=== PATIENT | male | born 1985 | race Caucasian/White ===

== ENCOUNTER 2017-05-11 19:54 | Emergency (ER) | payer OTHER ==
[2017-05-11 20:05] VITALS: RESP 18
[2017-05-11] MEDS ORDERED: SODIUM CHLORIDE 0.9% 1,000 ML IV STA (20:21)
--- NOTE | 2017-05-11 20:38 | ED ---
General Adult HPI - General Chief complaint: Recheck/Abnormal Lab/Rx Stated complaint: [facility]/BP 170/110 Time Seen by Provider: 05/11/17 20:06 Source: patient, RN notes reviewed Mode of arrival: ambulatory Limitations: no limitations - History of Present Illness Initial comments: 31-year-old male presents to the emergency department with a chief complaint of hyperglycemia. Patient states that his sugar was around 400 today. Patient states she's never been diagnosed with diabetes but he has had increased urination and thirst. Patient states he went to [facility] breast disease she's been feeling kind of off and dizzy with an elevated blood pressure and they referred him here. Patient states that he has not sought medical care in the while due to not having insurance. Patient states that this time he still having little bit of the dizziness he states sometimes it like the world spinning sometimes like he is about to pass out. Patient states his blood pressure seems to have improved since calming down. Patient states that he was concerns without that he should be seen.Patient denies any recent fever, chills , shortness of breath, chest pain, back pain, abdominal pain, nausea vomiting, numbness or tingling, dysuria or hematuria, constipation or diarrhea, headaches or visual changes, or any other current symptoms. - Related Data Previous Rx's Medication Instructions Recorded amLODIPine BESYLATE [Norvasc] 5 mg PO DAILY #20 tablet 05/11/17 metFORMIN HCL [Glucophage Xr] 500 mg PO DAILY #20 tab 05/11/17 Allergies Allergy/AdvReac Type Severity Reaction Status Date / Time aloe vera Allergy Unknown Verified 05/11/17 20:09 Review of Systems ROS Statement: Those systems with pertinent positive or pertinent negative responses have been documented in the HPI. ROS Other: All systems not noted in ROS Statement are negative. Past Medical History Past Medical History: Hypertension History of Any Multi-Drug Resistant Organisms: None Reported Past Surgical History: No Surgical Hx Reported Past Psychological History: No Psychological Hx Reported Smoking Status: Never smoker Past Alcohol Use History: None Reported Past Drug Use History: None Reported General Exam - General Exam Comments Initial Comments: General: The patient is awake and alert, in no distress, and does not appear acutely ill. Eye: Pupils are equal, round and reactive to light, extra-ocular movements are intact; there is normal conjunctiva bilaterally. No signs of icterus. Ears, nose, mouth and throat: There are moist mucous membranes. Neck: The neck is supple, there is no tenderness. Cardiovascular: There is a regular rate and rhythm. No murmur, rub or gallop is appreciated. Respiratory: Lungs are clear to auscultation, respirations are non-labored, breath sounds are equal. No wheezes, stridor, rales, or rhonchi. Gastrointestinal: Soft, non-distended, non-tender abdomen without masses or organomegaly noted. There is no rebound or guarding present. No CVA tenderness. Bowel sounds are unremarkable. Back: There is no tenderness to palpation in the midline. There is no obvious deformity. No rashes noted. Musculoskeletal: Normal ROM, no tenderness, There is no pedal edema. There is no calf tenderness or swelling. Sensation intact. Pulses equal bilaterally 2+. Neurological: CN II-XII intact, There are no obvious motor or sensory deficits. Coordination appears grossly intact. Speech is normal. Skin: Skin is warm and dry and no rashes or lesions are noted. Psychiatric: Cooperative, appropriate mood & affect, normal judgment. Limitations: no limitations Course Vital Signs 05/11/17 05/11/17 20:00 21:12 Temperature 98.7 F Pulse Rate 83 85 Respiratory 18 18 Rate Blood Pressure 182/97 153/84 O2 Sat by Pulse 99 97 Oximetry EKG Findings - EKG Comments: EKG Findings:: normal sinus rhythm 84 bpm, normal axis, no atopy, no S-T depressions or elevations, Medical Decision Making - Medical Decision Making 31-year-old male presents emergency Department chief complaint hypertension and hyperglycemia. At this time patient's lab work has been reviewed. There is suspicion for possible new-onset diabetes. Hypertension. We will treat accordingly. We did discuss close up with her doctor. We discussed long-term. Discussed return parameters outpatient family's questions. He stated the [facility] management plan. They will be discharged home. - Lab Data Result diagrams: 05/11/17 20:37 05/11/17 20:37 Lab Results 05/11/17 05/11/17 05/11/17 Range/Units 20:36 20:37 20:37 WBC 10.6 (3.8-10.6) k/uL RBC 5.40 (4.30-5.90) m/uL Hgb 16.9 (13.0-17.5) gm/dL Hct 46.8 (39.0-53.0) % MCV 86.7 (80.0-100.0) fL MCH 31.3 (25.0-35.0) pg MCHC 36.1 (31.0-37.0) g/dL RDW 12.6 (11.5-15.5) % Plt Count 201 (150-450) k/uL Neutrophils % 65 % Lymphocytes % 28 % Monocytes % 3 % Eosinophils % 2 % Basophils % 1 % Neutrophils # 6.9 (1.3-7.7) k/uL Lymphocytes # 2.9 (1.0-4.8) k/uL Monocytes # 0.4 (0-1.0) k/uL Eosinophils # 0.2 (0-0.7) k/uL Basophils # 0.1 (0-0.2) k/uL PT (9.0-12.0) sec INR (<1.2) APTT (22.0-30.0) sec Sodium 137 (137-145) mmol/L Potassium 4.0 (3.5-5.1) mmol/L Chloride 102 (98-107) mmol/L Carbon Dioxide 24 (22-30) mmol/L Anion Gap 11 mmol/L BUN 12 (9-20) mg/dL Creatinine 0.60 L (0.66-1.25) mg/dL Est GFR (MDRD) Af Amer >60 (>60 ml/min/1.73 sqM) Est GFR (MDRD) Non-Af >60 (>60 ml/min/1.73 sqM) Glucose 351 H (74-99) mg/dL POC Glucose (mg/dL) 330 H (75-99) mg/dL POC Glu [employer] Supervisor ID Jessica Huntley Calcium 9.4 (8.4-10.2) mg/dL Phosphorus 4.1 (2.5-4.5) mg/dL Magnesium 1.6 (1.6-2.3) mg/dL Total Bilirubin 1.2 (0.2-1.3) mg/dL AST 50 (17-59) U/L ALT 83 H (21-72) U/L Alkaline Phosphatase 118 (38-126) U/L Total Protein 7.6 (6.3-8.2) g/dL Albumin 4.2 (3.5-5.0) g/dL Amylase 45 (30-110) U/L Lipase 60 (23-300) U/L Urine Color Urine Appearance (Clear) Urine pH (5.0-8.0) Ur Specific [place] (1.001-1.035) Urine Protein (Negative) Urine Glucose (UA) (Negative) Urine Ketones (Negative) Urine Blood (Negative) Urine Nitrite (Negative) Urine Bilirubin (Negative) Urine Urobilinogen (<2.0) mg/dL Ur Leukocyte Esterase (Negative) Acetone, Qual Negative (Negative) 05/11/17 05/11/17 Range/Units 20:37 21:15 WBC (3.8-10.6) k/uL RBC (4.30-5.90) m/uL Hgb (13.0-17.5) gm/dL Hct (39.0-53.0) % MCV (80.0-100.0) fL MCH (25.0-35.0) pg MCHC (31.0-37.0) g/dL RDW (11.5-15.5) % Plt Count (150-450) k/uL Neutrophils % % Lymphocytes % % Monocytes % % Eosinophils % % Basophils % % Neutrophils # (1.3-7.7) k/uL Lymphocytes # (1.0-4.8) k/uL Monocytes # (0-1.0) k/uL Eosinophils # (0-0.7) k/uL Basophils # (0-0.2) k/uL PT 11.4 (9.0-12.0) sec INR 1.1 (<1.2) APTT 23.9 (22.0-30.0) sec Sodium (137-145) mmol/L Potassium (3.5-5.1) mmol/L Chloride (98-107) mmol/L Carbon Dioxide (22-30) mmol/L Anion Gap mmol/L BUN (9-20) mg/dL Creatinine (0.66-1.25) mg/dL Est GFR (MDRD) Af Amer (>60 ml/min/1.73 sqM) Est GFR (MDRD) Non-Af (>60 ml/min/1.73 sqM) Glucose (74-99) mg/dL POC Glucose (mg/dL) (75-99) mg/dL POC Glu [employer] Supervisor ID Calcium (8.4-10.2) mg/dL Phosphorus (2.5-4.5) mg/dL Magnesium (1.6-2.3) mg/dL Total Bilirubin (0.2-1.3) mg/dL AST (17-59) U/L ALT (21-72) U/L Alkaline Phosphatase (38-126) U/L Total Protein (6.3-8.2) g/dL Albumin (3.5-5.0) g/dL Amylase (30-110) U/L Lipase (23-300) U/L Urine Color Yellow Urine Appearance Clear (Clear) Urine pH 5.5 (5.0-8.0) Ur Specific [place] 1.026 (1.001-1.035) Urine Protein Negative (Negative) Urine Glucose (UA) 4+ H (Negative) Urine Ketones Negative (Negative) Urine Blood Negative (Negative) Urine Nitrite Negative (Negative) Urine Bilirubin Negative (Negative) Urine Urobilinogen <2.0 (<2.0) mg/dL Ur Leukocyte Esterase Negative (Negative) Acetone, Qual (Negative) - Radiology Data Radiology results: report reviewed, image reviewed Disposition Clinical Impression: Hyperglycemia, Hypertension Disposition: HOME SELF-CARE Condition: Stable Instructions: Diabetic Hyperglycemia (ED), Hypertension (ED) Additional Instructions: Please use medication as discussed. Please follow up with family doctor if symptoms have not improved over the next two days. Please return to the emergency room if your symptoms increase or worsen or for any other concerns. Prescriptions: amLODIPine BESYLATE [Norvasc] 5 mg PO DAILY #20 tablet metFORMIN HCL [Glucophage Xr] 500 mg PO DAILY #20 tab Referrals: Mila Coronado MD [STAFF PHYSICIAN] - 1-2 days Time of Disposition: 21:54
[2017-05-11 20:55] LABS: Glucose,Whole Blood 330 mg/dL (75-99)
[2017-05-11 20:58] LABS: Basophils # (A) 0.1 k/uL (0-0.2); Basophils % (A) 1 %; CH 31.9; CHCM 36.9; Eosinophils # (A) 0.2 k/uL (0-0.7); Eosinophils % (A) 2 %; HCT 46.8 % (39.0-53.0); HDW 2.82; HGB 16.9 gm/dL (13.0-17.5); Luc # (Auto) 0.16; Luc % (Auto) 2; Lymphocytes # (A) 2.9 k/uL (1.0-4.8); Lymphocytes % (A) 28 %; MCH 31.3 pg (25.0-35.0); MCHC 36.1 g/dL (31.0-37.0); MCV 86.7 fL (80.0-100.0); Mean Platelet Volume 7.7; Monocytes # (A) 0.4 k/uL (0-1.0); Monocytes % (A) 3 %; Neutrophils # (A) 6.9 k/uL (1.3-7.7); Neutrophils % (A) 65 %; RDW 12.6 % (11.5-15.5); WBC 10.6 k/uL (3.8-10.6); WBC (Perox) 10.25
--- NOTE | 2017-05-11 20:58 | XR ---
EXAMINATION TYPE: XR chest 2V DATE OF EXAM: 05/11/2017 COMPARISON: NONE INDICATION: Cough TECHNIQUE: Frontal and lateral views of the chest are obtained. FINDINGS: The heart size is normal. The pulmonary vasculature is normal. The lungs are clear. IMPRESSION: 1. No acute pulmonary process.
[2017-05-11 21:17] LABS: ALT 83 U/L (21-72); AST 50 U/L (17-59); Alkaline Phosphatase 118 U/L (38-126); Amylase 45 U/L (30-110); Anion Gap 11 mmol/L; Blood Urea Nitrogen 12 mg/dL (9-20); Calcium 9.4 mg/dL (8.4-10.2); Carbon Dioxide 24 mmol/L (22-30); Chloride 102 mmol/L (98-107); Glucose 351 mg/dL (74-99); Magnesium 1.6 mg/dL (1.6-2.3); Non-African American GFR(MDRD) >60 (>60 ml/min/1.73 sqM); Phosphorous 4.1 mg/dL (2.5-4.5); Sodium 137 mmol/L (137-145); Total Bilirubin 1.2 mg/dL (0.2-1.3); Total Protein 7.6 g/dL (6.3-8.2)
[2017-05-11 21:21] LABS: INR 1.1 (<1.2); Partial Thromboplastin Time 23.9 sec (22.0-30.0); Prothrombin Time 11.4 sec (9.0-12.0)
[2017-05-11 21:26] LABS: Appearance,Urine Clear (Clear); Bilirubin,Urine Negative (Negative); Glucose,Urine (UA) 4+ (Negative); Ketones,Urine Negative (Negative); Leukocyte Esterase,Urine Negative (Negative); Nitrite,Urine Negative (Negative); PH, Urine 5.5 (5.0-8.0); Protein,Urine Negative (Negative); Specific Gravity,Urine 1.026 (1.001-1.035); UA Billing (MACRO vs. MICRO) CHEM; Urobilinogen,Urine <2.0 mg/dL (<2.0)
[2017-05-11 22:08] VITALS: BP 148/70
[2017-05-11 22:12] VITALS: PULSE 91; TEMP 97.5
== END 2017-05-11 22:11 | disposition home or self-care (01) ==
LOC: EC 19:54
DX: R73.9 Hyperglycemia, unspecified (principal); I10 Essential (primary) hypertension; R42 Dizziness and giddiness; Z91.048 Other nonmedicinal substance allergy status
CPT/HCPCS: 36415; 71020; 80053; 81003; 82009; 82150; 83036; 83690; 83735; 84100; 85025; 85610; 85730; 93005; 96360; 99285

== ENCOUNTER 2017-09-16 12:54 | Emergency (ER) | payer OTHER ==
[2017-09-16] MEDS ORDERED: SODIUM CHLORIDE 0.9% 1,000 ML IV STA (16:43)
--- NOTE | 2017-09-16 16:50 | ED ---
General Adult HPI - General Chief complaint: Syncope Stated complaint: syncope/facial numbness/nausea/headache Time Seen by Provider: 09/16/17 13:00 Source: patient, RN notes reviewed Mode of arrival: ambulatory Limitations: no limitations - History of Present Illness Initial comments: This is a 31-year-old male who presents emergency Department with a syncopal episode. Patient states he got up and went to the bathroom was walking back to the bedroom and He knows his wake him up on the floor. states that was 2 hours later but she wasn't home for this to our psychiatrist been sick on the floor but effective matter as the patient does not remember waking up on the floor of her. states when he did wake up he acted normal and was able to get up on his own he did complain of some tingling on both sidesbut that quickly resolved. Patient also is complaining of a headache since that time he still states the headache is there. Patient does not have any scalp contusions or hematomas that he knows appear patient denies any neck pain. Patient denies any numbness weakness per patient denies any palpitations chest pain difficult breathing shortness breath per patient denies any other previous episodes of syncope. Patient denies abdominal pain patient denies nausea vomiting diarrhea. Patient denies any back pain or extremity pain. Patient states he might be a diabetic but he never followed up. Patient states he does have hypertension. - Related Data Previous Rx's Medication Instructions Recorded amLODIPine BESYLATE [Norvasc] 5 mg PO DAILY #20 tablet 05/11/17 metFORMIN HCL [Glucophage Xr] 500 mg PO DAILY #20 tab 05/11/17 Allergies Allergy/AdvReac Type Severity Reaction Status Date / Time aloe vera Allergy Unknown Verified 09/16/17 17:40 Review of Systems ROS Statement: Those systems with pertinent positive or pertinent negative responses have been documented in the HPI. ROS Other: All systems not noted in ROS Statement are negative. Past Medical History Past Medical History: Hypertension History of Any Multi-Drug Resistant Organisms: None Reported Past Surgical History: No Surgical Hx Reported Past Psychological History: No Psychological Hx Reported Smoking Status: Never smoker Past Alcohol Use History: None Reported Past Drug Use History: None Reported General Exam - General Exam Comments Initial Comments: GENERAL: Patient is well-developed and well-nourished. Patient is nontoxic and well- hydrated and is in mild distress. I did not note any hematoma or tenderness on the scalp. ENT: Neck is soft and supple. No significant lymphadenopathy is noted. Oropharynx is clear. Moist mucous membranes. Neck has full range of motion without eliciting any pain. EYES: The sclera were anicteric and conjunctiva were pink and moist. Extraocular movements were intact and pupils were equal round and reactive to light. Eyelids were unremarkable. PULMONARY: Unlabored respirations. Good breath sounds bilaterally. No audible rales rhonchi or wheezing was noted. CARDIOVASCULAR: There is a regular rate and rhythm without any murmurs gallops or rubs. ABDOMEN: Soft and nontender with normal bowel sounds. SKIN: Skin is clear with no lesions or rashes and otherwise unremarkable. NEUROLOGIC: Patient is alert and oriented x3. Cranial nerves II through XII are grossly intact. Motor and sensory are also intact. Normal speech, volume and content. Symmetrical smile. MUSCULOSKELETAL: Normal extremities with adequate strength and full range of motion. No lower extremity swelling or edema. No calf tenderness. LYMPHATICS: No significant lymphadenopathy is noted PSYCHIATRIC: Normal psychiatric evaluation. Normal interpersonal interactions appears functionally intact in deals appropriately with others. No signs of depression. No signs of anxiety. Limitations: no limitations Course Vital Signs 09/16/17 09/16/17 13:02 18:09 Temperature 97.3 F L Pulse Rate 79 Pulse Rate [ 89 Sitting] Pulse Rate [ 99 Standing] Pulse Rate [ 88 Supine] Respiratory 16 18 Rate Blood Pressure 157/80 Blood Pressure 156/85 [Sitting] Blood Pressure 166/88 [Standing] Blood Pressure 137/80 [Supine] O2 Sat by Pulse 98 Oximetry Medical Decision Making - Medical Decision Making EKG shows normal sinus rhythm at 88 bpm OR interval is 172 QRS is 92 QT interval 380 QTC is 459 per patient's EKG shows no ST segment elevation or depression or T wave abnormalities are noted CT of the head shows no acute abnormality. Chest x-ray shows no acute normalities. I told the patient I wanted him to stay overnight he refused eyes was in the room and agreed that he should stay but he still did not want to stay. - Lab Data Result diagrams: 09/16/17 20:01 09/16/17 20:01 Lab Results 09/16/17 09/16/17 09/16/17 Range/Units 20:01 20:01 20:01 WBC 9.8 (3.8-10.6) k/uL RBC 5.22 (4.30-5.90) m/uL Hgb 15.6 (13.0-17.5) gm/dL Hct 46.0 (39.0-53.0) % MCV 88.1 (80.0-100.0) fL MCH 29.8 (25.0-35.0) pg MCHC 33.9 (31.0-37.0) g/dL RDW 14.3 (11.5-15.5) % Plt Count 181 (150-450) k/uL Neutrophils % 63 % Lymphocytes % 30 % Monocytes % 3 % Eosinophils % 2 % Basophils % 1 % Neutrophils # 6.2 (1.3-7.7) k/uL Lymphocytes # 2.9 (1.0-4.8) k/uL Monocytes # 0.3 (0-1.0) k/uL Eosinophils # 0.2 (0-0.7) k/uL Basophils # 0.1 (0-0.2) k/uL PT 11.2 (9.0-12.0) sec INR 1.2 H (<1.2) APTT 22.8 (22.0-30.0) sec Sodium 140 (137-145) mmol/L Potassium 4.1 (3.5-5.1) mmol/L Chloride 102 (98-107) mmol/L Carbon Dioxide 30 (22-30) mmol/L Anion Gap 8 mmol/L BUN 15 (9-20) mg/dL Creatinine 0.70 (0.66-1.25) mg/dL Est GFR (MDRD) Af Amer >60 (>60 ml/min/1.73 sqM) Est GFR (MDRD) Non-Af >60 (>60 ml/min/1.73 sqM) Glucose 190 H (74-99) mg/dL Calcium 9.1 (8.4-10.2) mg/dL Total Bilirubin 0.8 (0.2-1.3) mg/dL AST 33 (17-59) U/L ALT 73 H (21-72) U/L Alkaline Phosphatase 84 (38-126) U/L Total Creatine Kinase (55-170) U/L CK-MB (CK-2) (0.0-2.4) ng/mL CK-MB (CK-2) Rel Index Troponin I (0.000-0.034) ng/mL Total Protein 7.0 (6.3-8.2) g/dL Albumin 3.7 (3.5-5.0) g/dL Acetone, Qual Negative (Negative) 09/16/17 Range/Units 20:01 WBC (3.8-10.6) k/uL RBC (4.30-5.90) m/uL Hgb (13.0-17.5) gm/dL Hct (39.0-53.0) % MCV (80.0-100.0) fL MCH (25.0-35.0) pg MCHC (31.0-37.0) g/dL RDW (11.5-15.5) % Plt Count (150-450) k/uL Neutrophils % % Lymphocytes % % Monocytes % % Eosinophils % % Basophils % % Neutrophils # (1.3-7.7) k/uL Lymphocytes # (1.0-4.8) k/uL Monocytes # (0-1.0) k/uL Eosinophils # (0-0.7) k/uL Basophils # (0-0.2) k/uL PT (9.0-12.0) sec INR (<1.2) APTT (22.0-30.0) sec Sodium (137-145) mmol/L Potassium (3.5-5.1) mmol/L Chloride (98-107) mmol/L Carbon Dioxide (22-30) mmol/L Anion Gap mmol/L BUN (9-20) mg/dL Creatinine (0.66-1.25) mg/dL Est GFR (MDRD) Af Amer (>60 ml/min/1.73 sqM) Est GFR (MDRD) Non-Af (>60 ml/min/1.73 sqM) Glucose (74-99) mg/dL Calcium (8.4-10.2) mg/dL Total Bilirubin (0.2-1.3) mg/dL AST (17-59) U/L ALT (21-72) U/L Alkaline Phosphatase (38-126) U/L Total Creatine Kinase 64 (55-170) U/L CK-MB (CK-2) 1.1 (0.0-2.4) ng/mL CK-MB (CK-2) Rel Index 1.7 Troponin I <0.012 (0.000-0.034) ng/mL Total Protein (6.3-8.2) g/dL Albumin (3.5-5.0) g/dL Acetone, Qual (Negative) Disposition Clinical Impression: Syncope and collapse Disposition: Left Against Medical Advice Instructions: Syncope (ED) Referrals: None,Stated [Primary Care Provider] - 1-2 days Time of Disposition: 21:01
--- NOTE | 2017-09-16 18:48 | CT ---
EXAMINATION: CT brain wo con DATE AND TIME: 09/16/2017 6:25 PM ORDERING PROVIDER: Wilfred Hinkle MD CLINICAL INDICATION: syncope facial numbness TECHNIQUE: Standard departmental protocol. COMPARISON: None. DESCRIPTION: The calvarium is intact. There is no intracranial hemorrhage. There is no mass or mass e ffect. There is no definite new attenuation defect. Remainder of the intra-axial and extra-axial comp artment examination is unremarkable. The paranasal sinuses, middle ear cavities, and mastoid sinus ai r cells are clear. The orbits are intact. IMPRESSION: NO ACUTE PROCESS.
--- NOTE | 2017-09-16 18:58 | XR ---
EXAMINATION: XR chest - 3V DATE AND TIME: 09/16/2017 6:25 PM ORDERING PROVIDER: Wilfred Hinkle MD CLINICAL INDICATION: syncope TECHNIQUE: 2 PA and lateral COMPARISON: 05/11/1970 DESCRIPTION: EKG leads present. The lungs are clear. The pleural spaces are negative. The cardiac silhouette is not enlarged. The mediastinal and pleural silhouettes are unremarkable. The skeletal structures are intact without focal findings. The soft tissues are unremarkable. IMPRESSION: NO ACUTE PROCESS.
[2017-09-16 20:11] LABS: Basophils # (A) 0.1 k/uL (0-0.2); Basophils % (A) 1 %; Eosinophils # (A) 0.2 k/uL (0-0.7); Eosinophils % (A) 2 %; HGB 15.6 gm/dL (13.0-17.5); Lymphocytes # (A) 2.9 k/uL (1.0-4.8); Lymphocytes % (A) 30 %; MCH 29.8 pg (25.0-35.0); MCHC 33.9 g/dL (31.0-37.0); MCV 88.1 fL (80.0-100.0); Mean Platelet Volume 7.8; Monocytes # (A) 0.3 k/uL (0-1.0); Monocytes % (A) 3 %; Neutrophils # (A) 6.2 k/uL (1.3-7.7); Neutrophils % (A) 63 %; Platelet Count 181 k/uL (150-450); RBC 5.22 m/uL (4.30-5.90); RDW 14.3 % (11.5-15.5); WBC 9.8 k/uL (3.8-10.6)
[2017-09-16 20:24] LABS: INR 1.2 (<1.2); Partial Thromboplastin Time 22.8 sec (22.0-30.0); Prothrombin Time 11.2 sec (9.0-12.0)
[2017-09-16 20:34] LABS: Creatine Kinase 64 U/L (55-170)
[2017-09-16 20:40] LABS: ALT 73 U/L (21-72); AST 33 U/L (17-59); Albumin 3.7 g/dL (3.5-5.0); Alkaline Phosphatase 84 U/L (38-126); Anion Gap 8 mmol/L; Blood Urea Nitrogen 15 mg/dL (9-20); Calcium 9.1 mg/dL (8.4-10.2); Carbon Dioxide 30 mmol/L (22-30); Chloride 102 mmol/L (98-107); Glucose 190 mg/dL (74-99); Potassium 4.1 mmol/L (3.5-5.1); Sodium 140 mmol/L (137-145); Total Bilirubin 0.8 mg/dL (0.2-1.3)
[2017-09-16 20:47] LABS: Creatine Kinase MB 1.1 ng/mL (0.0-2.4); Troponin I <0.012 ng/mL (0.000-0.034)
[2017-09-16 22:09] VITALS: BP 148/93; PULSE 90; RESP 20
[2017-09-16 22:18] VITALS: TEMP 98.3
== END 2017-09-16 21:55 | disposition left against medical advice (07) ==
LOC: EC 12:54
DX: R55 Syncope and collapse (principal); Z91.048 Other nonmedicinal substance allergy status
CPT/HCPCS: 36415; 70450; 71046; 80053; 82009; 82550; 82553; 84484; 85025; 85610; 85730; 93005; 96360; 99284

== ENCOUNTER 2018-03-23 19:14 | Inpatient (IN) | payer OTHER ==
[2018-03-23 20:17] LABS: Glucose,Whole Blood 293 mg/dL (75-99)
[2018-03-23 21:13] LABS: Basophils # (A) 0.1 k/uL (0-0.2); Basophils % (A) 1 %; Eosinophils # (A) 0.3 k/uL (0-0.7); Eosinophils % (A) 2 %; HCT 49.8 % (39.0-53.0); HGB 17.4 gm/dL (13.0-17.5); Lymphocytes % (A) 31 %; MCH 30.2 pg (25.0-35.0); MCV 86.3 fL (80.0-100.0); Mean Platelet Volume 7.1; Monocytes # (A) 0.4 k/uL (0-1.0); Monocytes % (A) 3 %; Neutrophils % (A) 62 %; Platelet Count 214 k/uL (150-450); RBC 5.76 m/uL (4.30-5.90); RDW 13.5 % (11.5-15.5); WBC 12.9 k/uL (3.8-10.6)
[2018-03-23 21:23] LABS: ALT 74 U/L (21-72); AST 37 U/L (17-59); Albumin 4.3 g/dL (3.5-5.0); Alkaline Phosphatase 95 U/L (38-126); Amylase 52 U/L (30-110); Anion Gap 10 mmol/L; Blood Urea Nitrogen 14 mg/dL (9-20); Calcium 9.4 mg/dL (8.4-10.2); Carbon Dioxide 28 mmol/L (22-30); Chloride 102 mmol/L (98-107); Glucose 314 mg/dL (74-99); Lipase 46 U/L (23-300); Potassium 4.1 mmol/L (3.5-5.1); Sodium 140 mmol/L (137-145); Total Bilirubin 0.9 mg/dL (0.2-1.3); Total Protein 7.6 g/dL (6.3-8.2)
[2018-03-23 22:15] LABS: Glucose,Whole Blood 272 mg/dL (75-99)
[2018-03-23 22:17] VITALS: RESP 16
[2018-03-23] MEDS ORDERED: SODIUM CHLORIDE 0.9% 1,000 ML IV ONE (22:27)
[2018-03-23] MEDS ORDERED: ONDANSETRON 4 MG/2 ML VIAL IVP STA (22:27)
[2018-03-23] MEDS ORDERED: SODIUM CHLORIDE 0.9% 500 ML IV ONE (22:27)
[2018-03-23] MEDS ORDERED: LISINOPRIL 5 MG TAB PO STA (22:30)
--- NOTE | 2018-03-23 22:32 | ED ---
General Adult HPI - General Chief complaint: Abdominal Pain Stated complaint: BLOOD SUGAR IS HIGH Time Seen by Provider: 03/23/18 21:10 Source: patient, RN notes reviewed Mode of arrival: ambulatory Limitations: no limitations - History of Present Illness Initial comments: This is a 32-year-old male who presents emergency Department complaining that he has had nausea vomiting and diarrhea since Friday night. Patient states he went to urgent care and they told him his sugar was 287. Patient states she's not had a high sugar in the past she's never been diagnosed diabetes. Patient states he has been diagnosed with high blood pressure but he doesn't take any medications because he doesn't follow up with a doctor. Patient denies any recent fever chills. Patient denies any difficulty breathing or shortness of breath. Patient denies any chest pain. Patient denies headache patient denies numbness weakness. Patient denies lightheadedness dizziness or near syncopal episode. Patient denies any abdominal pain but he does have nausea still and is still having diarrhea. - Related Data Home Medications Medication Instructions Recorded Confirmed No Known Home Medications 03/23/18 03/23/18 Allergies Allergy/AdvReac Type Severity Reaction Status Date / Time aloe vera Allergy Unknown Verified 03/23/18 22:06 Review of Systems ROS Statement: Those systems with pertinent positive or pertinent negative responses have been documented in the HPI. ROS Other: All systems not noted in ROS Statement are negative. Past Medical History Past Medical History: Hypertension History of Any Multi-Drug Resistant Organisms: None Reported Past Surgical History: No Surgical Hx Reported Past Psychological History: No Psychological Hx Reported Smoking Status: Never smoker Past Alcohol Use History: None Reported Past Drug Use History: None Reported General Exam - General Exam Comments Initial Comments: GENERAL: Patient is well-developed and well-nourished. Patient is nontoxic and well- hydrated and is in mild distress. ENT: Neck is soft and supple. No significant lymphadenopathy is noted. Oropharynx is clear. Dry mucous membranes. Neck has full range of motion without eliciting any pain. EYES: The sclera were anicteric and conjunctiva were pink and moist. Extraocular movements were intact and pupils were equal round and reactive to light. Eyelids were unremarkable. PULMONARY: Unlabored respirations. Good breath sounds bilaterally. No audible rales rhonchi or wheezing was noted. CARDIOVASCULAR: There is a regular rate and rhythm without any murmurs gallops or rubs. ABDOMEN: Soft and nontender with normal bowel sounds. No palpable organomegaly was noted. There is no palpable pulsatile mass. SKIN: Skin is clear with no lesions or rashes and otherwise unremarkable. NEUROLOGIC: Patient is alert and oriented x3. Cranial nerves II through XII are grossly intact. Motor and sensory are also intact. Normal speech, volume and content. Symmetrical smile. MUSCULOSKELETAL: Normal extremities with adequate strength and full range of motion. No lower extremity swelling or edema. No calf tenderness. LYMPHATICS: No significant lymphadenopathy is noted PSYCHIATRIC: Normal psychiatric evaluation. Normal interpersonal interactions appears functionally intact in deals appropriately with others. No signs of depression. Limitations: no limitations Course Vital Signs 03/23/18 03/23/18 20:10 22:12 Temperature 98.2 F Pulse Rate 98 95 Respiratory 18 16 Rate Blood Pressure 161/100 142/98 O2 Sat by Pulse 98 97 Oximetry Medical Decision Making - Medical Decision Making EKG shows normal sinus rhythm at 91 bpm NM interval is 170 QRS is 92 QT interval 376 QTC is 462. Patient's EKG shows no ST segment elevation or depression or T wave abnormalities are noted. Patient has acute vomiting and diarrhea. Patient has what appears to be new onset of diabetes but no one to follow-up with. I spoke with [facility] hospitalist and they agreed to admit the patient and wrote admitting orders. - Lab Data Result diagrams: 03/23/18 21:02 03/23/18 21:02 Lab Results 03/23/18 03/23/18 03/23/18 Range/Units 20:14 21:02 21:02 WBC 12.9 H (3.8-10.6) k/uL RBC 5.76 (4.30-5.90) m/uL Hgb 17.4 (13.0-17.5) gm/dL Hct 49.8 (39.0-53.0) % MCV 86.3 (80.0-100.0) fL MCH 30.2 (25.0-35.0) pg MCHC 35.0 (31.0-37.0) g/dL RDW 13.5 (11.5-15.5) % Plt Count 214 (150-450) k/uL Neutrophils % 62 % Lymphocytes % 31 % Monocytes % 3 % Eosinophils % 2 % Basophils % 1 % Neutrophils # 8.0 H (1.3-7.7) k/uL Lymphocytes # 4.0 (1.0-4.8) k/uL Monocytes # 0.4 (0-1.0) k/uL Eosinophils # 0.3 (0-0.7) k/uL Basophils # 0.1 (0-0.2) k/uL Sodium 140 (137-145) mmol/L Potassium 4.1 (3.5-5.1) mmol/L Chloride 102 (98-107) mmol/L Carbon Dioxide 28 (22-30) mmol/L Anion Gap 10 mmol/L BUN 14 (9-20) mg/dL Creatinine 0.70 (0.66-1.25) mg/dL Est GFR (CKD-EPI)AfAm >90 (>60 ml/min/1.73 sqM) Est GFR (CKD-EPI)NonAf >90 (>60 ml/min/1.73 sqM) Glucose 314 H (74-99) mg/dL POC Glucose (mg/dL) 293 H (75-99) mg/dL POC Glu Seconds Handler ID Benny Roth Calcium 9.4 (8.4-10.2) mg/dL Total Bilirubin 0.9 (0.2-1.3) mg/dL AST 37 (17-59) U/L ALT 74 H (21-72) U/L Alkaline Phosphatase 95 (38-126) U/L Troponin I (0.000-0.034) ng/mL Total Protein 7.6 (6.3-8.2) g/dL Albumin 4.3 (3.5-5.0) g/dL Amylase 52 (30-110) U/L Lipase 46 (23-300) U/L Urine Color Urine Appearance (Clear) Urine pH (5.0-8.0) Ur Specific [place] (1.001-1.035) Urine Protein (Negative) Urine Glucose (UA) (Negative) Urine Ketones (Negative) Urine Blood (Negative) Urine Nitrite (Negative) Urine Bilirubin (Negative) Urine Urobilinogen (<2.0) mg/dL Ur Leukocyte Esterase (Negative) Urine RBC (0-5) /hpf Urine WBC (0-5) /hpf Ur Squamous Epith Cells (0-4) /hpf Urine Bacteria (None) /hpf Urine Mucus (None) /hpf Acetone, Qual (Negative) 03/23/18 03/23/18 03/23/18 Range/Units 21:02 21:02 22:14 WBC (3.8-10.6) k/uL RBC (4.30-5.90) m/uL Hgb (13.0-17.5) gm/dL Hct (39.0-53.0) % MCV (80.0-100.0) fL MCH (25.0-35.0) pg MCHC (31.0-37.0) g/dL RDW (11.5-15.5) % Plt Count (150-450) k/uL Neutrophils % % Lymphocytes % % Monocytes % % Eosinophils % % Basophils % % Neutrophils # (1.3-7.7) k/uL Lymphocytes # (1.0-4.8) k/uL Monocytes # (0-1.0) k/uL Eosinophils # (0-0.7) k/uL Basophils # (0-0.2) k/uL Sodium (137-145) mmol/L Potassium (3.5-5.1) mmol/L Chloride (98-107) mmol/L Carbon Dioxide (22-30) mmol/L Anion Gap mmol/L BUN (9-20) mg/dL Creatinine (0.66-1.25) mg/dL Est GFR (CKD-EPI)AfAm (>60 ml/min/1.73 sqM) Est GFR (CKD-EPI)NonAf (>60 ml/min/1.73 sqM) Glucose (74-99) mg/dL POC Glucose (mg/dL) 272 H (75-99) mg/dL POC Glu Seconds Handler ID Holland Asencio Calcium (8.4-10.2) mg/dL Total Bilirubin (0.2-1.3) mg/dL AST (17-59) U/L ALT (21-72) U/L Alkaline Phosphatase (38-126) U/L Troponin I <0.012 (0.000-0.034) ng/mL Total Protein (6.3-8.2) g/dL Albumin (3.5-5.0) g/dL Amylase (30-110) U/L Lipase (23-300) U/L Urine Color Urine Appearance (Clear) Urine pH (5.0-8.0) Ur Specific [place] (1.001-1.035) Urine Protein (Negative) Urine Glucose (UA) (Negative) Urine Ketones (Negative) Urine Blood (Negative) Urine Nitrite (Negative) Urine Bilirubin (Negative) Urine Urobilinogen (<2.0) mg/dL Ur Leukocyte Esterase (Negative) Urine RBC (0-5) /hpf Urine WBC (0-5) /hpf Ur Squamous Epith Cells (0-4) /hpf Urine Bacteria (None) /hpf Urine Mucus (None) /hpf Acetone, Qual Negative (Negative) 03/23/18 Range/Units 22:19 WBC (3.8-10.6) k/uL RBC (4.30-5.90) m/uL Hgb (13.0-17.5) gm/dL Hct (39.0-53.0) % MCV (80.0-100.0) fL MCH (25.0-35.0) pg MCHC (31.0-37.0) g/dL RDW (11.5-15.5) % Plt Count (150-450) k/uL Neutrophils % % Lymphocytes % % Monocytes % % Eosinophils % % Basophils % % Neutrophils # (1.3-7.7) k/uL Lymphocytes # (1.0-4.8) k/uL Monocytes # (0-1.0) k/uL Eosinophils # (0-0.7) k/uL Basophils # (0-0.2) k/uL Sodium (137-145) mmol/L Potassium (3.5-5.1) mmol/L Chloride (98-107) mmol/L Carbon Dioxide (22-30) mmol/L Anion Gap mmol/L BUN (9-20) mg/dL Creatinine (0.66-1.25) mg/dL Est GFR (CKD-EPI)AfAm (>60 ml/min/1.73 sqM) Est GFR (CKD-EPI)NonAf (>60 ml/min/1.73 sqM) Glucose (74-99) mg/dL POC Glucose (mg/dL) (75-99) mg/dL POC Glu Seconds Handler ID Calcium (8.4-10.2) mg/dL Total Bilirubin (0.2-1.3) mg/dL AST (17-59) U/L ALT (21-72) U/L Alkaline Phosphatase (38-126) U/L Troponin I (0.000-0.034) ng/mL Total Protein (6.3-8.2) g/dL Albumin (3.5-5.0) g/dL Amylase (30-110) U/L Lipase (23-300) U/L Urine Color Yellow Urine Appearance Clear (Clear) Urine pH 5.5 (5.0-8.0) Ur Specific [place] 1.027 (1.001-1.035) Urine Protein 1+ H (Negative) Urine Glucose (UA) 4+ H (Negative) Urine Ketones Negative (Negative) Urine Blood Negative (Negative) Urine Nitrite Negative (Negative) Urine Bilirubin Negative (Negative) Urine Urobilinogen 3.0 (<2.0) mg/dL Ur Leukocyte Esterase Negative (Negative) Urine RBC 2 (0-5) /hpf Urine WBC 3 (0-5) /hpf Ur Squamous Epith Cells 1 (0-4) /hpf Urine Bacteria Rare H (None) /hpf Urine Mucus Many H (None) /hpf Acetone, Qual (Negative) Disposition Clinical Impression: Acute vomiting, Diabetes mellitus, new onset Disposition: ADMITTED IP TO THIS HOSP Referrals: None,Stated [Primary Care Provider] - 1-2 days Time of Disposition: 00:14
[2018-03-23 23:10] LABS: Appearance,Urine Clear (Clear); Bacteria,Urine Rare /hpf; Bilirubin,Urine Negative (Negative); Blood,Urine Negative (Negative); Color,Urine Yellow; Glucose,Urine (UA) 4+ (Negative); Ketones,Urine Negative (Negative); Leukocyte Esterase,Urine Negative (Negative); Mucus,Urine Many /hpf; Nitrite,Urine Negative (Negative); PH, Urine 5.5 (5.0-8.0); Protein,Urine 1+ (Negative); RBC,Urine 2 /hpf (0-5); Specific Gravity,Urine 1.027 (1.001-1.035); Squamous Epithelial Cell,Urine 1 /hpf (0-4); WBC,Urine 3 /hpf (0-5)
--- NOTE | 2018-03-23 23:12 | XR ---
EXAMINATION TYPE: XR KUB DATE OF EXAM: 03/23/2018 COMPARISON: NONE HISTORY: Vomiting TECHNIQUE: 2 views FINDINGS: There is no sign of intestinal obstruction or pneumoperitoneum. Fecal pattern is normal. Th ere are no pathologic calcifications. Lung bases are clear. IMPRESSION: Nonacute abdomen.
[2018-03-24] MEDS ORDERED: SODIUM CHLORIDE 0.9% 1,000 ML IV ONE (00:14)
[2018-03-24] MEDS ORDERED: ONDANSETRON 4 MG/2 ML VIAL IVP PRN (00:15)
[2018-03-24 01:25] LABS: Glucose,Whole Blood 270 mg/dL (75-99)
[2018-03-24 03:17] LABS: Glucose,Whole Blood 265 mg/dL (75-99)
[2018-03-24 06:32] LABS: Glucose,Whole Blood 271 mg/dL (75-99)
[2018-03-24 06:34] VITALS: BP 140/66; PULSE 88; TEMP 97.8
[2018-03-24] MEDS: INSULIN ASPART 100 UNIT/ML 1 ML 10 ML VIAL SQ SCH ×2 (06:37→12:04)
[2018-03-24 08:14] VITALS: BMI 33.0
[2018-03-24 12:03] LABS: Glucose,Whole Blood 256 mg/dL (75-99)
[2018-03-24 15:31] LABS: Hemoglobin A1C 11.2 % (4.0-6.0)
--- NOTE | 2018-03-24 18:13 | P.DS ---
Providers Date of admission: 03/24/18 00:14 Attending physician: Julia Landrum Primary care physician: Stated None Hospital Course: Please refer to my HPI Plan - Discharge Summary Discharge Rx Participant: No New Discharge Prescriptions: New metFORMIN HCL [Glucophage] 500 mg PO BID #60 tab Omeprazole [PriLOSEC] 40 mg PO AC-BRKFST #14 capsule. Discharge Medication List Omeprazole [PriLOSEC] 40 mg PO AC-BRKFST #14 capsule. 03/24/18 [Rx] metFORMIN HCL [Glucophage] 500 mg PO BID #60 tab 03/24/18 [Rx] Follow up Appointment(s)/Referral(s): Stefania Salas MD [STAFF PHYSICIAN] - 1 Week None,Stated [Primary Care Provider] - 1-2 days Patient Instructions/Handouts: Type 2 Diabetes in Adults (DC) Activity/Diet/Wound Care/Special Instructions: CHECK BLOOD SUGARS TWICE DAILY, BEFORE BREAKFAST AND BEFORE BED KEEP LOG OF BLOOD SUGARS TO SHOW TO PHYSICIAN. NAUSEA/DIARRHEA COMMON WITH BEGINNING NEW METFORMIN DOSAGE. FOLLOW UP WITH [facility]UCATION CLASS (FRIDAY). Discharge/Stand Alone Forms: Work/Release Restrictions Form Discharge Disposition: HOME SELF-CARE
--- NOTE | 2018-03-24 18:13 | P.HPIM ---
History of Present Illness Patient is a 32-year-old pleasant gentleman came to ER with complaints of nausea vomiting and diarrhea probably secondary to gastritis or gastroenteritis patient is being given Prilosec and will be discharged home. Patient was incidentally found to have highly elevated blood sugars of around 360 patient blood sugars are consistently elevated around 230 to 250 during the hospitalization which is itself is diagnostic of type 2 diabetes mellitus which is new. Patient doesn't have a PCP. Patient will be provided scripts for Glucophage at a lower dose which need to be increased, patient may require a second medication as well. At the time of discharge I do not have any hemoglobin A1c available presently I do have a hemoglobin A1c available which is 11.5. Patient was given Prilosec for 14 days for possible gastritis. Patient was extensive counseling regarding weight loss dietary counseling was provided by me as well as staff educator patient to check his blood sugars twice a day glucometer prescription and test scripts were provided to the patient and patient was referred to Dr. Moctezuma Review of Systems REVIEW OF SYSTEMS: CONSTITUTIONAL: No fever, no malaise, no fatigue. HEENT: No recent visual problems or hearing problems. Denied any sore throat. CARDIOVASCULAR: No chest pain, orthopnea, PND, no palpitations, no syncope. PULMONARY: No shortness of breath, no cough, no hemoptysis. GASTROINTESTINAL: And to have mild abdominal epigastric discomfort Normoactive bowel sounds. NEUROLOGICAL: No headaches, no weakness, no numbness. HEMATOLOGICAL: Denies any bleeding or petechiae. GENITOURINARY: Denies any burning micturition, frequency, or urgency. MUSCULOSKELETAL/RHEUMATOLOGICAL: Denies any joint pain, swelling, or any muscle pain. ENDOCRINE: Denies any polyuria or polydipsia. The rest of the 14-point review of systems is negative. Past Medical History Past Medical History: Diabetes Mellitus, Hypertension History of Any Multi-Drug Resistant Organisms: None Reported Past Surgical History: No Surgical Hx Reported Additional Past Anesthesia/Blood Transfusion Reaction / Comment(s): no surgeries Past Psychological History: No Psychological Hx Reported Smoking Status: Never smoker Past Alcohol Use History: None Reported Past Drug Use History: None Reported - Past Family History Mother Additional Family Medical History / Comment(s): female cancers run in the family Medications and Allergies Home Medications Medication Instructions Recorded Confirmed Type Omeprazole [PriLOSEC] 40 mg PO -BRKFST #14 capsule. 03/24/18 Rx metFORMIN HCL [Glucophage] 500 mg PO BID #60 tab 03/24/18 Rx Allergies Allergy/AdvReac Type Severity Reaction Status Date / Time aloe vera Allergy Unknown Verified 03/23/18 22:06 Physical Exam Vitals: Vital Signs Temp Pulse Resp BP Pulse Ox 03/24/18 06:00 97.8 F 88 16 140/66 95 03/24/18 00:00 97.0 F L 89 145/94 99 03/23/18 22:12 95 16 142/98 97 03/23/18 20:10 98.2 F 98 18 161/100 98 Intake and Output 03/24/18 03/24/18 03/24/18 06:59 14:59 22:59 Other: Weight 133 kg PHYSICAL EXAMINATION: GENERAL: The patient is alert and oriented x3, not in any acute distress. Obese , atraumatic. No pharyngeal erythema. No thyromegaly. CARDIOVASCULAR: S1 and S2 present. No murmurs, rubs, or gallops. PULMONARY: Chest is clear to auscultation, no wheezing or crackles. ABDOMEN: Soft, nontender, nondistended, normoactive bowel sounds. No palpable organomegaly. MUSCULOSKELETAL: No joint swelling or deformity. EXTREMITIES: No cyanosis, clubbing, or pedal edema. NEUROLOGICAL: Gross neurological examination did not reveal any focal deficits. SKIN: No rashes. Results CBC & Chem 7: 03/23/18 21:02 03/23/18 21:02 Labs: Abnormal Lab Results - Last 24 Hours (Table) 03/23/18 03/23/18 03/23/18 Range/Units 20:14 21:02 21:02 WBC 12.9 H (3.8-10.6) k/uL Neutrophils # 8.0 H (1.3-7.7) k/uL Glucose 314 H (74-99) mg/dL POC Glucose (mg/dL) 293 H (75-99) mg/dL Hemoglobin A1c (4.0-6.0) % ALT 74 H (21-72) U/L Urine Protein (Negative) Urine Glucose (UA) (Negative) Urine Bacteria (None) /hpf Urine Mucus (None) /hpf 07/16/18 07/16/18 07/16/18 Range/Units 21:02 22:14 22:19 WBC (3.8-10.6) k/uL Neutrophils # (1.3-7.7) k/uL Glucose (74-99) mg/dL POC Glucose (mg/dL) 272 H (75-99) mg/dL Hemoglobin A1c 11.2 H (4.0-6.0) % ALT (21-72) U/L Urine Protein 1+ H (Negative) Urine Glucose (UA) 4+ H (Negative) Urine Bacteria Rare H (None) /hpf Urine Mucus Many H (None) /hpf 03/24/18 03/24/18 03/24/18 Range/Units 01:23 03:14 06:30 WBC (3.8-10.6) k/uL Neutrophils # (1.3-7.7) k/uL Glucose (74-99) mg/dL POC Glucose (mg/dL) 270 H 265 H 271 H (75-99) mg/dL Hemoglobin A1c (4.0-6.0) % ALT (21-72) U/L Urine Protein (Negative) Urine Glucose (UA) (Negative) Urine Bacteria (None) /hpf Urine Mucus (None) /hpf 03/24/18 Range/Units 12:00 WBC (3.8-10.6) k/uL Neutrophils # (1.3-7.7) k/uL Glucose (74-99) mg/dL POC Glucose (mg/dL) 256 H (75-99) mg/dL Hemoglobin A1c (4.0-6.0) % ALT (21-72) U/L Urine Protein (Negative) Urine Glucose (UA) (Negative) Urine Bacteria (None) /hpf Urine Mucus (None) /hpf Thrombosis Risk Factor Assmnt - Choose All That Apply Any of the Below Risk Factors Present?: No Other Risk Factors: No Other congenital or acquired thrombophilia - If yes, enter type in comment: No Thrombosis Risk Factor Assessment Level: Very Low Risk Assessment and Plan Plan: -Nausea vomiting diarrhea: Secondary to viral gastroenteritis which resolved there may be a competent of gastritis as well patient is being discharged on Prilosec -Type 2 diabetes mellitus new-onset further management as mentioned in HPI -Obesity: Counseling was provided
== END 2018-03-24 12:45 | disposition home or self-care (01) | DRG 392 ==
LOC: EC 19:14 → 4MS4W 03-24 00:14
PROVIDERS: ADMIT Hospitalist; ATTEND Hospitalist
DX: A08.4 Viral intestinal infection, unspecified (principal); E66.9 Obesity, unspecified; E11.65 Type 2 diabetes mellitus with hyperglycemia; I10 Essential (primary) hypertension; Z68.33 Body mass index [BMI] 33.0-33.9, adult; Z71.3 Dietary counseling and surveillance; Z79.84 Long term (current) use of oral hypoglycemic drugs; Z79.899 Other long term (current) drug therapy; Z88.8 Allergy status to other drugs, medicaments and biological substances
CPT/HCPCS: 36415; 74018; 80053; 81001; 82009; 82150; 83036; 83690; 84484; 85025; 93005; 96361; 96374; 99285

== ENCOUNTER → 2018-06-23 | Outpatient (CLI) | payer OTHER ==
--- NOTE | 2018-06-24 11:18 | P.STRESS ---
- Stress Test Note Stress Test Results/Findings: Exam Performed: stress test Exam Date: 06/23/18 Reason for Exam: Chest Pain Height: 6 ft 6 in Weight: 128.367 kg Protocol: Dylan Stage: 2 Duration of Exercise: 7:15 Resting Heart Rate: 87 Resting Blood Pressure: 143/94 Maximum Achieved Heart Rate: 164 Maximum Achieved Blood Pressure: 208/72 85% PMHR: 161 100% PMHR: 189 METS: 8.7 Technologist Comment: Stress Test Results/Findings: Baseline heart rate 87 beats a minute Baseline blood pressure 143/94 mmHg Baseline twelve-lead ECG shows normal sinus rhythm normal chronic intervals Patient exercised on a Dylan protocol for 7 minutes 15 seconds achieving a peak heart rate of 164 beats a minute Mildly hypertensive response to exercise No ECG was for ischemia no arrhythmias noted. Impression Average excess capacity Mildly hypertensive response to exercise No ECG ohms for ischemia at this workload level
== END | disposition home or self-care (01) ==
LOC: RADNMMAIN 06-15 08:58
PROVIDERS: ATTEND Family Medicine
DX: R07.9 Chest pain, unspecified (principal)
CPT/HCPCS: 93017

== ENCOUNTER 2019-05-17 04:38 | Emergency (ER) | payer OTHER ==
--- NOTE | 2019-05-17 04:58 | ED ---
Chest Pain HPI - General Chief Complaint: Chest Pain Stated Complaint: Chest Pain Time Seen by Provider: 05/17/19 04:45 Source: patient, EMS Mode of arrival: EMS Limitations: no limitations - History of Present Illness Initial Comments: Christophe is an obese 33-year-old gentleman who presents to the emergency department today for evaluation of chest pain. Patient reports that he is laying in bed this morning trying to sleep but began having sharp retrosternal pain which prompted him to call EMS for transport to the hospital. Patient reports when the pain began he felt somewhat sweaty but not short of breath nauseated and had no vomiting. Patient reports he has experienced pains like this in the past and has been told it's because his sugar gets too high. Patient reports that her sugar was high in the ambulance today greater than 350. She denies any family history of early cardiac disease. He is not a smoker. He has no known cardiac disease. His previous visits to the hospital for chest pain have all been attributed to his hyperglycemia. Patient denies any family history of DVT PE or known clotting disorders. He has no personal history of DVT PE or clotting disorder. Patient is not feeling short of breath. The patient received aspirin prior to arrival from EMS. - Related Data Home Medications Medication Instructions Recorded Confirmed Empagliflozin [Jardiance] 25 mg PO DAILY 05/17/19 05/17/19 Ergocalciferol [Vitamin D2] 50,000 unit PO Q30D 05/17/19 05/17/19 Glimepiride [Amaryl] 4 mg PO BID 05/17/19 05/17/19 Insulin NPH Hum/Reg Insulin Hm 18 unit SQ W/SUPPER 05/17/19 05/17/19 [NovoLIN 70-30 100 UNIT/ML VIAL] Insulin NPH Hum/Reg Insulin Hm 30 unit SQ W/BRKFST 05/17/19 05/17/19 [NovoLIN 70-30 100 UNIT/ML VIAL] Lisinopril [Zestril] 10 mg PO DAILY 05/17/19 05/17/19 Pioglitazone [Actos] 30 mg PO DAILY 05/17/19 05/17/19 busPIRone HCl [Buspar] 5 mg PO TID PRN 05/17/19 05/17/19 metFORMIN HCL [Glucophage] 850 mg PO BID 05/17/19 05/17/19 Allergies Allergy/AdvReac Type Severity Reaction Status Date / Time aloe vera Allergy Unknown Verified 05/17/19 08:01 Review of Systems ROS Statement: Those systems with pertinent positive or pertinent negative responses have been documented in the HPI. ROS Other: All systems not noted in ROS Statement are negative. EKG Findings - EKG Comments: EKG Findings:: EKG obtained due to complaint of chest pain. EKG obtained at 4:45am Rate 93, rhythm sinus there is normal axis, normal intervals, CA 150, cure is 92, QTc is 442 there are no acute ST elevations or depressions there is no evidence of acute ischemia or infarction. Q waves are noted in 3 and aVF. Past Medical History Past Medical History: Diabetes Mellitus, Hypertension History of Any Multi-Drug Resistant Organisms: None Reported Past Surgical History: No Surgical Hx Reported Additional Past Anesthesia/Blood Transfusion Reaction / Comment(s): no surgeries Past Psychological History: No Psychological Hx Reported Smoking Status: Never smoker Past Alcohol Use History: None Reported Past Drug Use History: None Reported - Past Family History Mother Additional Family Medical History / Comment(s): female cancers run in the family General Exam - General Exam Comments Initial Comments: Physical Exam GENERAL: Patient is well-developed and well-nourished. Patient is nontoxic and well- hydrated and is in no distress. HENT: Normocephalic, Atraumatic. EYES: PERRL, EOMI PULMONARY: Unlabored respirations. No audible rales rhonchi or wheezing was noted. CARDIOVASCULAR: There is a regular rate and rhythm without any murmurs gallops or rubs. ABDOMEN: Soft and nontender with normal bowel sounds. SKIN: Skin is clear with no lesions or rashes and otherwise unremarkable. : Deferred NEUROLOGIC: Patient is alert and oriented x3. Moving all extremities spontaneously MUSCULOSKELETAL: Normal extremities with adequate strength and full range of motion. No lower extremity swelling or edema. No calf tenderness. PSYCHIATRIC: Normal psychiatric evaluation. Limitations: no limitations Course Vital Signs 05/17/19 05/17/19 05/17/19 04:40 06:33 08:21 Temperature 99.1 F 97.6 F Pulse Rate 100 84 97 Respiratory 18 18 16 Rate Blood Pressure 168/105 162/96 159/97 O2 Sat by Pulse 93 L 96 98 Oximetry Chest Pain [facility] Patient was seen and evaluated, history is obtained from patient and 33-year-old gentleman with history of poorly controlled diabetes no history of cardiac di sease presenting today for evaluation of chest tightness which she reports is similar to previous episodes of having hyperglycemia. EKG was nonischemic Chest x-ray unremarkable Labs consistent with elevated glucose, no other abnormalities patient received IV fluids and insulin. Patient was reevaluated and reports that he is feeling much more comfortable at this time. At this time I do not feel the patient's discomfort was cardiac in nature. I do not feel the patient warrants admission to the hospital. Patient is comfortable with the plan for discharge home and outpatient follow-up. Disposition Clinical Impression: Atypical chest pain Disposition: HOME SELF-CARE Condition: Stable Instructions (If sedation given, give patient instructions): Diabetic Hyperglycemia (ED), Diabetes and Exercise (ED) Is patient prescribed a controlled substance at d/c from ED?: No Referrals: Veto Zamarripa MD [Primary Care Provider] - 1-2 days
[2019-05-17 05:09] LABS: Basophils # (A) 0.1 k/uL (0-0.2); Basophils % (A) 1 %; Eosinophils # (A) 0.3 k/uL (0-0.7); Eosinophils % (A) 3 %; HCT 43.9 % (39.0-53.0); HGB 15.6 gm/dL (13.0-17.5); Lymphocytes # (A) 3.2 k/uL (1.0-4.8); Lymphocytes % (A) 30 %; MCH 30.7 pg (25.0-35.0); MCHC 35.6 g/dL (31.0-37.0); MCV 86.4 fL (80.0-100.0); Mean Platelet Volume 7.8; Monocytes # (A) 0.4 k/uL (0-1.0); Monocytes % (A) 4 %; Neutrophils # (A) 6.6 k/uL (1.3-7.7); Neutrophils % (A) 62 %; Platelet Count 175 k/uL (150-450); RBC 5.09 m/uL (4.30-5.90); RDW 15.5 % (11.5-15.5); WBC 10.7 k/uL (3.8-10.6)
[2019-05-17 05:22] LABS: ALT 44 U/L (21-72); AST 22 U/L (17-59); African American GFR (CKD) >90 (>60 ml/min/1.73 sqM); Albumin 3.8 g/dL (3.5-5.0); Alkaline Phosphatase 98 U/L (38-126); Anion Gap 9 mmol/L; Blood Urea Nitrogen 13 mg/dL (9-20); Calcium 9.1 mg/dL (8.4-10.2); Carbon Dioxide 28 mmol/L (22-30); Chloride 102 mmol/L (98-107); Glucose 354 mg/dL (74-99); Magnesium 1.8 mg/dL (1.6-2.3); Potassium 3.6 mmol/L (3.5-5.1); Sodium 139 mmol/L (137-145); Total Bilirubin 0.5 mg/dL (0.2-1.3); Total Protein 6.9 g/dL (6.3-8.2)
[2019-05-17 05:26] LABS: Prothrombin Time 10.9 sec (9.0-12.0)
[2019-05-17] MEDS ORDERED: INSULIN REGULAR 100 UNIT/ML VIAL IV ONE (06:22)
[2019-05-17] MEDS ORDERED: SODIUM CHLORIDE 0.9% 2,000 ML IV ONE (06:22)
--- NOTE | 2019-05-17 06:52 | XR ---
EXAMINATION TYPE: XR chest 2V DATE OF EXAM: 05/17/2019 COMPARISON: Chest x-ray September 16, 2017 HISTORY: History of hypertension with chest pain. TECHNIQUE: Frontal and lateral views of the chest are obtained. FINDINGS: Overlying EKG leads are redemonstrated. There is no focal air space opacity, pleural effusi on, or pneumothorax seen. The cardiac silhouette size is within normal limits. The osseous structu res are intact. IMPRESSION: No acute cardiopulmonary process. No significant change from prior.
[2019-05-17 07:51] LABS: Glucose,Whole Blood 297 mg/dL (75-99)
[2019-05-17 08:23] VITALS: BP 159/97; PULSE 97; RESP 16; TEMP 97.6
== END 2019-05-17 08:15 | disposition home or self-care (01) ==
LOC: EC 04:38
DX: R07.89 Other chest pain (principal); E11.65 Type 2 diabetes mellitus with hyperglycemia; I10 Essential (primary) hypertension; Z79.4 Long term (current) use of insulin; Z79.899 Other long term (current) drug therapy; Z91.09 Other allergy status, other than to drugs and biological substances
CPT/HCPCS: 36415; 71046; 80053; 83690; 83735; 83880; 84484; 85025; 85610; 85730; 93005; 96360; 96361; 99285

== ENCOUNTER → 2020-07-27 | Outpatient (CLI) | payer OTHER | END | disposition home or self-care (01) | LOC: LABWHC1 14:45 | PROVIDERS: ATTEND Family Medicine | DX: J02.9 Acute pharyngitis, unspecified (principal); R05 Cough; R50.9 Fever, unspecified; R51.9 Headache, unspecified; Z20.828 Contact with and (suspected) exposure to other viral communicable diseases | CPT/HCPCS: U0003; C9803 ==

== ENCOUNTER 2023-03-25 08:41 | Observation (INO) | payer OTHER ==
[2023-03-25 08:52] LABS: Glucose,Whole Blood 552 mg/dL (70-110)
[2023-03-25] MEDS ORDERED: SODIUM CHLORIDE 0.9% 1,000 ML IV STA (08:56)
--- NOTE | 2023-03-25 09:00 | ED ---
General Adult HPI - General Chief complaint: Syncope Stated complaint: Hyperglycemia,Syncope Time Seen by Provider: 03/25/23 08:45 Source: patient, EMS, RN notes reviewed, old records reviewed Mode of arrival: EMS Limitations: no limitations - History of Present Illness Initial comments: 37-year-old male presenting for evaluation of syncope. Patient has had recurrent issues with syncope over the past several months. He's been following with his primary care provider regarding his elevated blood pressure and diabetes. He's had several medication changes and states that they initially had assumed that his syncopal episodes are related to hypotension from antihypertensive medications. Patient states he had just returned to work today after a prolonged period off secondary to these issues. He began to feel nauseous, vomited and passed out. He did not strike his head but states he does have a headache. Paramedics report elevated blood pressure, tachycardia and some blood sugar in the 500s. - Related Data Home Medications Medication Instructions Recorded Confirmed Empagliflozin [Jardiance] 25 mg PO DAILY 05/17/19 05/17/19 Ergocalciferol [Vitamin D2] 50,000 unit PO Q30D 05/17/19 05/17/19 Glimepiride [Amaryl] 4 mg PO BID 05/17/19 05/17/19 Insulin NPH Hum/Reg Insulin Hm 18 unit SQ W/SUPPER 05/17/19 05/17/19 [NovoLIN 70-30 100 UNIT/ML VIAL] Insulin NPH Hum/Reg Insulin Hm 30 unit SQ W/BRKFST 05/17/19 05/17/19 [NovoLIN 70-30 100 UNIT/ML VIAL] Pioglitazone [Actos] 30 mg PO DAILY 05/17/19 05/17/19 busPIRone HCl [Buspar] 5 mg PO TID PRN 05/17/19 05/17/19 lisinopriL [Zestril] 10 mg PO DAILY 05/17/19 05/17/19 metFORMIN HCL [Glucophage] 850 mg PO BID 05/17/19 05/17/19 Allergies Allergy/AdvReac Type Severity Reaction Status Date / Time aloe vera Allergy Unknown Verified 05/17/19 08:01 Review of Systems ROS Statement: Those systems with pertinent positive or pertinent negative responses have been documented in the HPI. ROS Other: All systems not noted in ROS Statement are negative. Past Medical History Past Medical History: Diabetes Mellitus, Hypertension History of Any Multi-Drug Resistant Organisms: None Reported Past Surgical History: No Surgical Hx Reported Additional Past Anesthesia/Blood Transfusion Reaction / Comment(s): no surgeries Past Psychological History: No Psychological Hx Reported Smoking Status: Never smoker Past Alcohol Use History: Occasional Past Drug Use History: None Reported - Past Family History Mother Additional Family Medical History / Comment(s): female cancers run in the family General Exam General appearance: alert, in no apparent distress Head exam: Present: atraumatic, normocephalic Eye exam: Present: normal appearance, PERRL ENT exam: Present: mucous membranes dry Neck exam: Present: normal inspection. Absent: tenderness, meningismus Respiratory exam: Present: normal lung sounds bilaterally. Absent: respiratory distress, wheezes Cardiovascular Exam: Present: normal rhythm, tachycardia GI/Abdominal exam: Present: soft. Absent: distended, tenderness, guarding, rebound Extremities exam: Present: normal inspection, normal capillary refill. Absent: pedal edema Neurological exam: Present: alert, oriented X3 Psychiatric exam: Present: normal affect, normal mood Skin exam: Present: warm, dry, intact. Absent: cyanosis, diaphoretic Course Vital Signs 03/25/23 08:43 Temperature 98.2 F Pulse Rate 107 H Respiratory 20 Rate Blood Pressure 169/118 O2 Sat by Pulse 97 Oximetry Medical Decision Making - Medical Decision Making Was pt. sent in by a medical professional or institution (LYNN Rojas, INSTRUMENTATION CONTROLS ENGINEER, urgent care, hospital, or intermediate...) When possible be specific @ -No Did you speak to anyone other than the patient for history (EMS, parent, family, police, friend...)? What history was obtained from this source @ -[Paramedics Did you review nursing and triage notes (agree or disagree)? Why? @ -I reviewed and agree with nursing and triage notes Were old charts reviewed (outside hosp., previous admission, EMS record, old EKG, old radiological studies, urgent care reports/EKG's, intermediate records)? Report findings @ -No old charts were reviewed Differential Diagnosis (chest pain, altered mental status, abdominal pain women, abdominal pain men, vaginal bleeding, weakness, fever, dyspnea, syncope, headache, dizziness, GI bleed, back pain, seizure, CVA, palpatations, mental health, musculoskeletal)? @ -[Differential Syncope: Valvular disease, hypertrophic cardiomyopathy, pulmonary embolism, tamponade, t achycardia, bradycardia, [place], hypovolemia, hemorrhage, dissection, anemia, intracranial hemorrhage, seizure, hypoglycemia, carbon monoxide poisoning, this is not meant to be an all-inclusive list. EKG interpreted by me (3pts min.). @ -[Sinus tach, rate of 111, NM interval 174, QRS duration 91, QTC [address] segment elevation. X-rays interpreted by me (1pt min.). @ -No acute cardiopulmonary findings CT interpreted by me (1pt min.). @CT negative for intracranial hemorrhage or mass effect U/S interpreted by me (1pt. min.). @ -None done What testing was considered but not performed or refused? (CT, X-rays, U/S, labs)? Why? @ -None What meds were considered but not given or refused? Why? @ -None Did you discuss the management of the patient with other professionals (professionals i.e. , PA, INSTRUMENTATION CONTROLS ENGINEER, lab, RT, psych nurse, social worker clinical, tape folding machine operator, teacher, surveillance officer, clinical case manager)? Give summary @Dr. Zamarripa Was smoking cessation discussed for >3mins.? @ -No Was critical care preformed (if so, how long)? @ -No Were there social determinants of health that impacted care today? How? (Homelessness, low income, unemployed, alcoholism, drug addiction, transportation, low edu. Level, literacy, decrease access to med. care, assisted, rehab)? @ -No Was there de-escalation of care discussed even if they declined (Discuss DNR or withdrawal of care, Hospice)? DNR status @ -No What co-morbidities impacted this encounter? (DM, HTN, Smoking, COPD, CAD, Cancer, CVA, ARF, Chemo, Hep., AIDS, mental health diagnosis, sleep apnea, morbid obesity)? @ -[Diabetes, hypertension Was patient admitted / discharged? Hospital course, mention meds given and route, prescriptions, significant lab abnormalities, going to OR and other pertinent info. @ -[[id number] male with syncope, hyperglycemia. Patient has had multiple episodes of syncope over the past several months. His initial blood sugars in the 600. This may be contributing to dehydration. Given 2 L of normal saline in the emergency department. He has a normal CBC, normal white lites otherwise. He is not acidotic or in diabetic ketoacidosis. He will benefit from IV hydration and telemetry. He'll be admitted to his primary care provider Dr. Zamarripa who is aware. Undiagnosed new problem with uncertain prognosis? @ -No Drug Therapy requiring intensive monitoring for toxicity (Heparin, Nitro, Insulin, Cardizem)? @ -No Were any procedures done? @ -No Diagnosis/symptom? @ -Syncope, hyperglycemia Acute, or Chronic, or Acute on Chronic? @ -Acute Uncomplicated (without systemic symptoms) or Complicated (systemic symptoms)? @ -[Complicated Side effects of treatment? @ -No Exacerbation, Progression, or Severe Exacerbation? @ -No Poses a threat to life or bodily function? How? (Chest pain, [place], [place], pneumonia, PE, COPD, DKA, ARF, appy, cholecystitis, CVA, Diverticulitis, Homicidal, Suicidal, threat to staff... and all critical care pts) @ -Yes, arrhythmia - Lab Data Result diagrams: 03/25/23 08:59 03/25/23 08:59 Lab Results 03/25/23 03/25/23 03/25/23 Range/Units 08:46 08:59 08:59 WBC 6.8 (3.8-10.6) k/uL RBC 4.85 (4.30-5.90) m/uL Hgb 14.8 (13.0-17.5) gm/dL Hct 44.1 (39.0-53.0) % MCV 90.9 (80.0-100.0) fL MCH 30.5 (25.0-35.0) pg MCHC 33.6 (31.0-37.0) g/dL RDW 13.6 (11.5-15.5) % Plt Count 193 (150-450) k/uL MPV 8.1 Neutrophils % 67 % Lymphocytes % 25 % Monocytes % 4 % Eosinophils % 2 % Basophils % 1 % Neutrophils # 4.6 (1.3-7.7) k/uL Lymphocytes # 1.7 (1.0-4.8) k/uL Monocytes # 0.3 (0-1.0) k/uL Eosinophils # 0.2 (0-0.7) k/uL Basophils # 0.0 (0-0.2) k/uL PT 10.7 (9.0-12.0) sec INR 1.0 (<1.2) APTT 21.8 L (22.0-30.0) sec VBG pH (7.31-7.41) VBG pCO2 (37-51) mmHg VBG HCO3 (24-28) mmol/L Sodium (137-145) mmol/L Potassium (3.5-5.1) mmol/L Chloride (98-107) mmol/L Carbon Dioxide (22-30) mmol/L Anion Gap mmol/L BUN (9-20) mg/dL Creatinine (0.66-1.25) mg/dL Est GFR (CKD-EPI)AfAm (>60 ml/min/1.73 sqM) Est GFR (CKD-EPI)NonAf (>60 ml/min/1.73 sqM) Glucose (74-99) mg/dL POC Glucose (mg/dL) 552 H (70-110) mg/dL POC Glu Consulting Software Engineer ID [place] Plasma Lactic Acid Sage (0.7-2.0) mmol/L Calcium (8.4-10.2) mg/dL Magnesium (1.6-2.3) mg/dL Total Bilirubin (0.2-1.3) mg/dL AST (17-59) U/L ALT (4-49) U/L Alkaline Phosphatase (38-126) U/L Troponin I (0.000-0.034) ng/mL Total Protein (6.3-8.2) g/dL Albumin (3.5-5.0) g/dL Urine Color Urine Appearance (Clear) Urine pH (5.0-8.0) Ur Specific [place] (1.001-1.035) Urine Protein (Negative) Urine Glucose (UA) (Negative) Urine Ketones (Negative) Urine Blood (Negative) Urine Nitrite (Negative) Urine Bilirubin (Negative) Urine Urobilinogen (<2.0) mg/dL Ur Leukocyte Esterase (Negative) Urine RBC (0-5) /hpf Urine WBC (0-5) /hpf Ur Squamous Epith Cells (0-4) /hpf Acetone, Qual (Negative) 03/25/23 03/25/23 03/25/23 Range/Units 08:59 08:59 08:59 WBC (3.8-10.6) k/uL RBC (4.30-5.90) m/uL Hgb (13.0-17.5) gm/dL Hct (39.0-53.0) % MCV (80.0-100.0) fL MCH (25.0-35.0) pg MCHC (31.0-37.0) g/dL RDW (11.5-15.5) % Plt Count (150-450) k/uL MPV Neutrophils % % Lymphocytes % % Monocytes % % Eosinophils % % Basophils % % Neutrophils # (1.3-7.7) k/uL Lymphocytes # (1.0-4.8) k/uL Monocytes # (0-1.0) k/uL Eosinophils # (0-0.7) k/uL Basophils # (0-0.2) k/uL PT (9.0-12.0) sec INR (<1.2) APTT (22.0-30.0) sec VBG pH (7.31-7.41) VBG pCO2 (37-51) mmHg VBG HCO3 (24-28) mmol/L Sodium 136 L (137-145) mmol/L Potassium 4.2 (3.5-5.1) mmol/L Chloride 105 (98-107) mmol/L Carbon Dioxide 21 L (22-30) mmol/L Anion Gap 10 mmol/L BUN 16 (9-20) mg/dL Creatinine 0.65 L (0.66-1.25) mg/dL Est GFR (CKD-EPI)AfAm >90 (>60 ml/min/1.73 sqM) Est GFR (CKD-EPI)NonAf >90 (>60 ml/min/1.73 sqM) Glucose 592 H* (74-99) mg/dL POC Glucose (mg/dL) (70-110) mg/dL POC Glu Consulting Software Engineer ID Plasma Lactic Acid Sage (0.7-2.0) mmol/L Calcium 8.8 (8.4-10.2) mg/dL Magnesium 1.5 L (1.6-2.3) mg/dL Total Bilirubin 0.9 (0.2-1.3) mg/dL AST 32 (17-59) U/L ALT 52 H (4-49) U/L Alkaline Phosphatase 96 (38-126) U/L Troponin I <0.012 (0.000-0.034) ng/mL Total Protein 6.7 (6.3-8.2) g/dL Albumin 3.7 (3.5-5.0) g/dL Urine Color Light Yellow Urine Appearance Clear (Clear) Urine pH 5.5 (5.0-8.0) Ur Specific [place] 1.032 (1.001-1.035) Urine Protein Trace H (Negative) Urine Glucose (UA) 4+ H (Negative) Urine Ketones Negative (Negative) Urine Blood Small H (Negative) Urine Nitrite Negative (Negative) Urine Bilirubin Negative (Negative) Urine Urobilinogen <2.0 (<2.0) mg/dL Ur Leukocyte Esterase Negative (Negative) Urine RBC 5 (0-5) /hpf Urine WBC 2 (0-5) /hpf Ur Squamous Epith Cells <1 (0-4) /hpf Acetone, Qual Negative (Negative) 03/25/23 03/25/23 Range/Units 08:59 09:50 WBC (3.8-10.6) k/uL RBC (4.30-5.90) m/uL Hgb (13.0-17.5) gm/dL Hct (39.0-53.0) % MCV (80.0-100.0) fL MCH (25.0-35.0) pg MCHC (31.0-37.0) g/dL RDW (11.5-15.5) % Plt Count (150-450) k/uL MPV Neutrophils % % Lymphocytes % % Monocytes % % Eosinophils % % Basophils % % Neutrophils # (1.3-7.7) k/uL Lymphocytes # (1.0-4.8) k/uL Monocytes # (0-1.0) k/uL Eosinophils # (0-0.7) k/uL Basophils # (0-0.2) k/uL PT (9.0-12.0) sec INR (<1.2) APTT (22.0-30.0) sec VBG pH 7.39 (7.31-7.41) VBG pCO2 37 (37-51) mmHg VBG HCO3 22 L (24-28) mmol/L Sodium (137-145) mmol/L Potassium (3.5-5.1) mmol/L Chloride (98-107) mmol/L Carbon Dioxide (22-30) mmol/L Anion Gap mmol/L BUN (9-20) mg/dL Creatinine (0.66-1.25) mg/dL Est GFR (CKD-EPI)AfAm (>60 ml/min/1.73 sqM) Est GFR (CKD-EPI)NonAf (>60 ml/min/1.73 sqM) Glucose (74-99) mg/dL POC Glucose (mg/dL) (70-110) mg/dL POC Glu Consulting Software Engineer ID Plasma Lactic Acid Sage 2.6 H* (0.7-2.0) mmol/L Calcium (8.4-10.2) mg/dL Magnesium (1.6-2.3) mg/dL Total Bilirubin (0.2-1.3) mg/dL AST (17-59) U/L ALT (4-49) U/L Alkaline Phosphatase (38-126) U/L Troponin I (0.000-0.034) ng/mL Total Protein (6.3-8.2) g/dL Albumin (3.5-5.0) g/dL Urine Color Urine Appearance (Clear) Urine pH (5.0-8.0) Ur Specific [place] (1.001-1.035) Urine Protein (Negative) Urine Glucose (UA) (Negative) Urine Ketones (Negative) Urine Blood (Negative) Urine Nitrite (Negative) Urine Bilirubin (Negative) Urine Urobilinogen (<2.0) mg/dL Ur Leukocyte Esterase (Negative) Urine RBC (0-5) /hpf Urine WBC (0-5) /hpf Ur Squamous Epith Cells (0-4) /hpf Acetone, Qual (Negative) Disposition Clinical Impression: Dehydration, Syncope, Hyperglycemia Disposition: ADMITTED IP TO THIS HOSP Condition: Stable Is patient prescribed a controlled substance at d/c from ED?: No Referrals: Veto Zamarripa MD [Primary Care Provider] - 1-2 days Time of Disposition: 11:25
--- NOTE | 2023-03-25 09:24 | XR ---
EXAMINATION TYPE: XR chest 2V DATE OF EXAM: 03/25/2023 COMPARISON: NONE TECHNIQUE: PA and lateral views submitted. HISTORY: Syncope FINDINGS: The lungs are clear and there is no pneumothorax, pleural effusion, or focal pneumonia. Heart size normal and no overt failure. Osseous structures demonstrate hypertrophic and degenerative changes of the spine. Hyperinflation suggests COPD. IMPRESSION: 1. No acute process.
[2023-03-25 09:28] LABS: Basophils % (A) 1 %; Eosinophils # (A) 0.2 k/uL (0-0.7); Eosinophils % (A) 2 %; HCT 44.1 % (39.0-53.0); HGB 14.8 gm/dL (13.0-17.5); Lymphocytes # (A) 1.7 k/uL (1.0-4.8); Lymphocytes % (A) 25 %; MCH 30.5 pg (25.0-35.0); MCHC 33.6 g/dL (31.0-37.0); MCV 90.9 fL (80.0-100.0); Mean Platelet Volume 8.1; Monocytes # (A) 0.3 k/uL (0-1.0); Monocytes % (A) 4 %; Neutrophils # (A) 4.6 k/uL (1.3-7.7); Neutrophils % (A) 67 %; Platelet Count 193 k/uL (150-450); RBC 4.85 m/uL (4.30-5.90); RDW 13.6 % (11.5-15.5); WBC 6.8 k/uL (3.8-10.6)
--- NOTE | 2023-03-25 09:48 | CT ---
EXAMINATION TYPE: CT brain wo con DATE OF EXAM: 03/25/2023 COMPARISON: 09/16/2014 INDICATION: Syncope DLP: 1143.4 mGycm, Automated exposure control for dose reduction was used. CONTRAST: None CT of the brain is performed utilizing 3 mm thick sections through the posterior fossa and 3 mm thick sections through the remaining calvarium. Study is performed within 24 hours of arrival to the hosp ital. No abnormal hyperdensity is present to suggest an acute intracranial hemorrhage. No mass lesion is evident. No acute infarcts are evident. Ventricles and sulci are appropriate for the patient age. Paranasal sinuses and mastoid air cells within the [id number] are clear. Right septal deviation is noted. IMPRESSIONS: 1. No acute intracranial process. Follow-up MRI can be performed as clinically indicated
[2023-03-25 09:51] LABS: Prothrombin Time 10.7 sec (9.0-12.0)
[2023-03-25 09:57] LABS: ALT 52 U/L (4-49); AST 32 U/L (17-59); African American GFR (CKD) >90 (>60 ml/min/1.73 sqM); Albumin 3.7 g/dL (3.5-5.0); Alkaline Phosphatase 96 U/L (38-126); Anion Gap 10 mmol/L; Blood Urea Nitrogen 16 mg/dL (9-20); Calcium 8.8 mg/dL (8.4-10.2); Carbon Dioxide 21 mmol/L (22-30); Chloride 105 mmol/L (98-107); Magnesium 1.5 mg/dL (1.6-2.3); Non-African American GFR(CKD) >90 (>60 ml/min/1.73 sqM); Potassium 4.2 mmol/L (3.5-5.1); Sodium 136 mmol/L (137-145); Total Bilirubin 0.9 mg/dL (0.2-1.3); Total Protein 6.7 g/dL (6.3-8.2)
[2023-03-25 09:58] LABS: Partial Thromboplastin Time 21.8 sec (22.0-30.0)
[2023-03-25 09:59] LABS: Glucose 592 mg/dL (74-99)
[2023-03-25 10:10] LABS: VBG PH 7.39 (7.31-7.41)
[2023-03-25] MEDS ORDERED: MAGNESIUM SULFATE-D5W PMX 1 GM in DEXTROSE/WATER 1 100ML.BAG IVPB ONE (10:17)
[2023-03-25] MEDS ORDERED: SODIUM CHLORIDE 0.9% 1,000 ML IV ONE (10:17)
[2023-03-25 10:24] LABS: Appearance,Urine Clear (Clear); Bilirubin,Urine Negative (Negative); Blood,Urine Small (Negative); Color,Urine Light Yellow; Glucose,Urine (UA) 4+ (Negative); Ketones,Urine Negative (Negative); Leukocyte Esterase,Urine Negative (Negative); Nitrite,Urine Negative (Negative); PH, Urine 5.5 (5.0-8.0); Protein,Urine Trace (Negative); RBC,Urine 5 /hpf (0-5); Specific Gravity,Urine 1.032 (1.001-1.035); Squamous Epithelial Cell,Urine <1 /hpf (0-4); Urobilinogen,Urine <2.0 mg/dL (<2.0); WBC,Urine 2 /hpf (0-5)
[2023-03-25] MEDS ORDERED: INSULIN REGULAR 100 UNIT/ML VIAL (IV) IV ONE (10:30)
[2023-03-25] MEDS ORDERED: NALOXONE 0.4 MG/ML 1 ML VIAL IV PRN (11:21)
[2023-03-25] MEDS: ACETAMINOPHEN TAB 325 MG TAB PO PRN (11:36)
[2023-03-25] MEDS: SODIUM CHLORIDE 0.9% 1,000 ML IV SCH (11:37)
[2023-03-25 12:01] LABS: Glucose,Whole Blood 370 mg/dL (70-110)
[2023-03-25 17:18] LABS: Glucose,Whole Blood 311 mg/dL (70-110)
[2023-03-25] MEDS: INSULN ASP PRT/INSULIN ASPART 100 UNIT/ML 10 ML VIAL SQ SCH (17:31)
[2023-03-25 20:22] LABS: Glucose,Whole Blood 243 mg/dL (70-110)
[2023-03-25] MEDS: metFORMIN 850 MG TAB PO SCH (20:30)
[2023-03-26] MEDS: SODIUM CHLORIDE 0.9% 1,000 ML IV SCH ×2 (03:37→16:38)
[2023-03-26 06:13] LABS: Glucose,Whole Blood 144 mg/dL (70-110)
[2023-03-26] MEDS: metFORMIN 850 MG TAB PO SCH ×2 (08:40→20:58)
[2023-03-26] MEDS: ATORVASTATIN 40 MG TAB PO SCH (08:40)
[2023-03-26] MEDS: lisinopriL 10 MG TAB PO SCH (08:41)
[2023-03-26] MEDS: DAPAGLIFLOZIN PROPANEDIOL 10 MG TABLET PO SCH (08:41)
[2023-03-26 08:43] LABS: Glucose,Whole Blood 161 mg/dL (70-110)
[2023-03-26] MEDS: INSULN ASP PRT/INSULIN ASPART 100 UNIT/ML 10 ML VIAL SQ SCH ×2 (08:45→17:55)
[2023-03-26 09:51] VITALS: BMI 30.2
[2023-03-26 12:10] LABS: Glucose,Whole Blood 149 mg/dL (70-110)
--- NOTE | 2023-03-26 12:11 | CA ---
Transthoracic Echo Report Name: Christophe Mercado Age: 37 Gender: M : 1985 Exam Date: 03/26/2023 07:36 Exam Location: [facility] Ht (in): 78 Wt (lb): 262 Ordering Physician: Veto Zamarripa MD Attending/Referring Phys: Marilou GRIDER Windows Consultant Daniella Lange, BUSTER Procedure CPT: Indications: Syncope Cardiac Hx: Technical Quality: Good Contrast 1: Total Dose (mL): Contrast 2: Total Dose (mL): MEASUREMENTS (Male / Female) Normal Values 2D ECHO LV Diastolic Diameter PLAX 5.6 cm 4.2 - 5.9 / 3.9 - 5.3 cm LV Systolic Diameter PLAX 3.9 cm IVS Diastolic Thickness 1.3 cm 0.6 - 1.0 / 0.6 - 0.9 cm LVPW Diastolic Thickness 1.2 cm 0.6 - 1.0 / 0.6 - 0.9 cm LV Relative Wall Thickness 0.4 RV Internal Dim ED PLAX 3.6 cm LA Systolic Diameter LX 3.7 cm 3.0 - 4.0 / 2.7 - 3.8 cm LV Diastolic Volume MOD BP 125.8 cm??? 67 - 155 / 56 - 104 cm??? LV Systolic Volume MOD BP 56.6 cm??? - 58 / 19 - 49 cm??? LV Ejection Fraction MOD BP 55.0 % >= 55 % LV Cardiac Index MOD BP 2227.8 cm???/min???m??? LV Diastolic Volume MOD 4C 111.4 cm??? LV Systolic Volume MOD 4C 52.6 cm??? LV Ejection Fraction MOD 4C 52.8 % LV Cardiac Index MOD 4C 1892.5 cm???/min???m??? LV Diastolic Length 4C 9.1 cm LV Systolic Length 4C 7.9 cm LV Diastolic Volume MOD 2C 137.1 cm??? LV Systolic Volume MOD 2C 62.2 cm??? LV Ejection Fraction MOD 2C 54.6 % LV Cardiac Index MOD 2C 2410.5 cm???/min???m??? LV Diastolic Length 2C 9.5 cm LV Systolic Length 2C 8.2 cm LA Volume 51.7 cm??? 18 - 58 / 22 - 52 cm??? M-MODE Aortic Root Diameter MM 3.5 cm MV E Point Septal Separation 1.1 cm AV Cusp Separation MM 2.4 cm DOPPLER AV Peak Velocity 128.4 cm/s AV Peak Gradient 6.6 mmHg MV Area PHT 3.5 cm??? Mitral E Point Velocity 107.3 cm/s Mitral A Point Velocity 94.6 cm/s Mitral E to A Ratio 1.1 MV Deceleration Time 219.6 ms MV E' Velocity 9.1 cm/s Mitral E to MV E' Ratio 11.8 FINDINGS Left Ventricle Left ventricular ejection fraction is estimated at 55-60 %. Mild concentric LVH Left ventricular cavity size normal. Normal left ventricular wall motion. No significant ostial dysfunction Right Ventricle Mild right ventricular dilatation. Unable to estimate the right ventricular systolic pressure. Right Atrium Normal right atrial size. Left Atrium Normal left atrial size. Mitral Valve Structurally normal mitral valve. No mitral stenosis, regurgitation or prolapse. Aortic Valve Trileaflet aortic valve. No aortic valve stenosis or regurgitation. Tricuspid Valve Structurally normal tricuspid valve. No tricuspid stenosis, regurgitation or prolapse. Pulmonic Valve Structurally normal pulmonic valve. No pulmonic regurgitation. Pericardium Normal pericardium. No pericardial effusion. Aorta Normal size aortic root and proximal ascending aorta. CONCLUSIONS Normal LV size, wall thickness and systolic function. Estimated LVEF 60-65%. Mild concentric LVH No obvious regional wall motion abnormality. No significant diastolic dysfunction. No significant valvular dysfunction. Overall normal chamber sizes. No pericardial effusion. No prior echo to compare with. Previewed by: Dr Osei Burgess (Electronically Signed) Final Date: 26 March 2023 12:10
[2023-03-26 17:48] LABS: Glucose,Whole Blood 162 mg/dL (70-110)
[2023-03-26 20:05] LABS: Glucose,Whole Blood 181 mg/dL (70-110)
[2023-03-26] MEDS: ACETAMINOPHEN TAB 325 MG TAB PO PRN (20:59)
--- NOTE | 2023-03-26 23:17 | CT ---
EXAMINATION TYPE: CT angio head neck DATE OF EXAM: 03/26/2023 HISTORY: Syncopal episode. COMPARISON: None CT DLP: 575.4 mGycm. Automated Exposure Control for Dose Reduction was Utilized. TECHNIQUE: CTA scan of the neck is performed with IV Contrast, patient injected with 65cc mL of Isov ue 370, axial images are obtained, coronal and sagittal reformatted images are reviewed. Three-D suzanna nstructed images are created on an independent workstation and reviewed. Source images are reviewed. FINDINGS: Carotid/Vascular Structures: There is a three-vessel arch. Vertebral arteries are codominant. Common carotid arteries bifurcate normally into internal and external carotid arteries. Internal carotid art eries and vertebral arteries are patent to the skull base. No suspicious stenosis of the internal car otid arteries is evident. Cervical of Son: Vertebral basilar system appears normal. Posterior cerebral vasculature is unrema rkable. Internal carotid arteries bifurcate normally into A1 and M1 segments. A2 segments are normal. The anterior communicating artery is patent. Left Posterior communicating artery is absent. Right po sterior communicating artery is patent. Other: IMPRESSION: 1. No flow-limiting stenosis bilateral carotid bifurcations. 2. Normal [place] of Son NASCET criteria was used in interpretation of this exam?
--- NOTE | 2023-03-27 00:27 | HP ---
HISTORY AND PHYSICAL CHIEF COMPLAINT: Syncopal episodes and uncontrolled diabetes. HISTORY OF PRESENT ILLNESS: Christophe is doing well. He has not had any syncope. There has been no evidence of rhythm problems. He feels fine. Blood sugars are a little bit better. PHYSICAL EXAMINATION: CHEST: Clear. CARDIAC: Normal. ABDOMEN: Soft, nontender. IMPRESSION: Syncopal episode, etiology unknown. PLAN: 1. CTA of the neck and head. 2. EEG. MMODL / IJN: [id number] /
--- NOTE | 2023-03-27 00:48 | HP ---
HISTORY AND PHYSICAL CHIEF COMPLAINT: Syncope episodes. HISTORY OF PRESENT ILLNESS: This is a 37-year-old white male diabetic who had a syncopal episode at work. This has happened to him several times recently. He is a noncompliant diabetic. He used to be very compliant and had excellent blood sugars. He has not been into the office for a while and came in recently wanting to get things under control. He went back to work and apparently had another event. He describes these as first feeling slightly dizzy and then trying to get somewhere where he can sit down or lie down. He then passes out. It does not sound like he passes out completely. The events are not associated by any aura, chest pain, palpitations, focal neurologic deficits, change in the vision, nausea, vomiting, diarrhea, or loss of sphincter control. When these have happened, his blood sugars have always been very high. He denies use of drugs. He has had no history of heart disease and there is no history of seizures in the patient or his family. REVIEW OF SYSTEMS: Otherwise unremarkable. Past medical history, family history, personal and social histories are otherwise unremarkable and noncontributory. PHYSICAL EXAMINATION: VITAL SIGNS: Normal. He is afebrile. HEAD, EARS, EYES, NOSE, MOUTH AND THROAT: Normal. NECK: Neck veins not distended. Carotids are normal. CHEST: Clear. CARDIAC: Normal sinus rhythm. There were no murmurs or extra sounds. ABDOMEN: Soft, nontender. EXTREMITIES: Normal. NEUROLOGICAL: Intact. He is admitted to the hospital with diagnoses, 1. Syncopal episodes, etiology unknown. 2. Uncontrolled type 1 insulin-dependent diabetes mellitus. PLAN: 1. Bedrest. 2. IV fluids. 3. Telemetry. 4. Echocardiogram. 5. CTA of the head and neck. 6. Eventually, place a 30-day event monitor on the patient. MMODL / IJN: [id number] /
[2023-03-27] MEDS: SODIUM CHLORIDE 0.9% 1,000 ML IV SCH ×2 (06:02→06:09)
[2023-03-27 06:07] LABS: Glucose,Whole Blood 148 mg/dL (70-110)
[2023-03-27] MEDS: INSULN ASP PRT/INSULIN ASPART 100 UNIT/ML 10 ML VIAL SQ SCH ×2 (07:27→18:42)
[2023-03-27] MEDS: metFORMIN 850 MG TAB PO SCH ×2 (10:03→20:50)
[2023-03-27] MEDS: ATORVASTATIN 40 MG TAB PO SCH (10:03)
[2023-03-27] MEDS: lisinopriL 10 MG TAB PO SCH (10:04)
[2023-03-27] MEDS: DAPAGLIFLOZIN PROPANEDIOL 10 MG TABLET PO SCH (10:04)
[2023-03-27 11:40] LABS: Glucose,Whole Blood 158 mg/dL (70-110)
--- NOTE | 2023-03-27 12:24 | EEG ---
ELECTROENCEPHALOGRAM REPORT CLINICAL HISTORY: This is a 37-year-old gentleman with reported syncopal episode at work. He is having recurrent syncope. He has a prior syncopal episode as well that is reported. The video EEG is obtained to evaluate for seizure epileptiform activity. RELEVANT MEDICATIONS: The patient is not on any antiepileptic drugs. EEG TYPE: A routine 21 channel EEG is performed with video using the 10/20 electrode placement system. DESCRIPTION: Wakefulness is obtained. The background consists of 10 to 11 Hz activity. There is no physiological stage 2 sleep architecture. There is no focal slowing. INTERICTAL AND ICTAL: Patient has sharp and sometimes spike and slow waves over the left temporal and seemed localized to T5 lead. At times, the patient has nonrhythmic diffuse delta intermixed with theta activity lasting 1 to 2 seconds and at times the background consists of diffuse sharply contoured 9 to 10 or 8 to 9 Hz activity lasting between 10 to 20 seconds that is nonrhythmic and there is no evolution. ACTIVATION PROCEDURE: Photic stimulation did not evoke a posterior driving response. There is no abnormality during the photic stimulation. Hyperventilation is not performed. CLINICAL INTERPRETATION: This is an abnormal routine EEG. There are epileptiform discharges, stemming over the left temporal region and it seems steaming from the T5 electrodes. The epileptiform discharges can increase risk for seizure as well as status. Otherwise, there is no seizure noted during the study. At times, the patient has sharply contoured diffuse background as well as the brief nonrhythmic delta activity. There is no focal slowing. I highly recommend starting the patient on antiepileptic drugs as well as consideration of a long-term EEG as an outpatient. Clinical correlation is recommended. I updated the patient's nurse regarding this report at around 11:29 a.m. on 03/27/2023. MMODL / IJN: [id number] / MTDD
[2023-03-27 18:23] LABS: Glucose,Whole Blood 141 mg/dL (70-110)
--- NOTE | 2023-03-27 20:00 | DS ---
DISCHARGE SUMMARY CHIEF COMPLAINT: Syncopal episodes. HISTORY OF PRESENT ILLNESS AND PHYSICAL EXAMINATION: Details of this man's history and physical can be found in the initial workup. LABORATORY STUDIES: While he was in the hospital, he had laboratory studies, details of which can be found in the laboratory section of his chart. COURSE IN THE HOSPITAL: After admission, he was placed on bedrest and started on frequent monitoring of his neurologic status and vital signs, and he was placed on telemetry. His blood sugars were brought under control. His blood pressure was elevated slightly, and this was addressed. He was doing well, and it was felt that he could be discharged on the , and go home on his usual activity and regular medications in addition to antihypertensive. He will be kept off work. He will follow up in the office in several days. FINAL DIAGNOSES: 1. Syncopal episodes, etiology unknown. 2. Uncontrolled type 1 insulin-dependent diabetes mellitus. 3. Hypertension. OPERATIONS: None. CONSULTATIONS: None. CONDITION: He is improved. MMODL / IJN: [id number] /
[2023-03-27 20:49] LABS: Glucose,Whole Blood 212 mg/dL (70-110)
[2023-03-28] MEDS: SODIUM CHLORIDE 0.9% 1,000 ML IV SCH ×2 (05:43→20:42)
[2023-03-28 06:23] LABS: Glucose,Whole Blood 147 mg/dL (70-110)
[2023-03-28] MEDS: INSULN ASP PRT/INSULIN ASPART 100 UNIT/ML 10 ML VIAL SQ SCH ×2 (07:20→18:13)
[2023-03-28] MEDS: DAPAGLIFLOZIN PROPANEDIOL 10 MG TABLET PO SCH (08:52)
[2023-03-28] MEDS: ATORVASTATIN 40 MG TAB PO SCH (08:52)
[2023-03-28] MEDS: metFORMIN 850 MG TAB PO SCH ×2 (08:52→20:42)
[2023-03-28] MEDS: LOSARTAN 50 MG TAB PO SCH (08:52)
[2023-03-28] MEDS: lisinopriL 10 MG TAB PO SCH (08:52)
[2023-03-28 12:30] LABS: Glucose,Whole Blood 152 mg/dL (70-110)
[2023-03-28 17:10] LABS: Glucose,Whole Blood 164 mg/dL (70-110)
[2023-03-28 20:51] LABS: Glucose,Whole Blood 215 mg/dL (70-110)
[2023-03-29 06:13] LABS: Glucose,Whole Blood 148 mg/dL (70-110)
[2023-03-29] MEDS: ATORVASTATIN 40 MG TAB PO SCH (08:19)
[2023-03-29] MEDS: DAPAGLIFLOZIN PROPANEDIOL 10 MG TABLET PO SCH (08:19)
[2023-03-29] MEDS: metFORMIN 850 MG TAB PO SCH (08:19)
[2023-03-29] MEDS: SODIUM CHLORIDE 0.9% 1,000 ML IV SCH (08:19)
[2023-03-29] MEDS: LOSARTAN 50 MG TAB PO SCH (08:19)
[2023-03-29] MEDS: lisinopriL 10 MG TAB PO SCH (08:19)
[2023-03-29] MEDS: INSULN ASP PRT/INSULIN ASPART 100 UNIT/ML 10 ML VIAL SQ SCH (08:19)
[2023-03-29] MEDS: ACETAMINOPHEN TAB 325 MG TAB PO PRN (08:25)
[2023-03-29 08:27] VITALS: RESP 16
--- NOTE | 2023-03-29 09:47 | MR ---
EXAMINATION TYPE: MR brain wo/w con DATE OF EXAM: 03/29/2023 9:21 AM CLINICAL INDICATION:Male, 37 years old with history of seizure COMPARISON: 03/25/2023 TECHNIQUE: Multi planar, multi sequence imaging was performed through the brain including: T1, T2, In version recovery, susceptibility weighted imaging and gradient echo imaging and Diffusion weighted im aging. The patient was then given intravenous contrast and multi planar, T1 fat-saturation images wer e obtained. IV Contrast: 12 cc of Gadavist FINDINGS: The mcgee-white junctions, ventricular system, basal cisterns appear unremarkable. Diffusion-weighted imaging shows no evidence of restricted diffusion to suggest acute/subacute infarct. Intracranial art erial flow voids are maintained. Midline structures show no abnormality. The susceptibility weighted images do not reveal any evidence for micro-hemorrhage. After administration of gadolinium, no abnorm al enhancement is seen. The bone marrow signal is within normal limits. Paranasal sinuses and mastoid air cells: There is a high T2 signal lesion within the hard palate josé luis uring 25 x 20 x 25 mm. Visualized orbits: Orbital contents are intact. IMPRESSION: 1. No evidence of intracranial mass, acute/subacute infarct, or abnormal enhancement. 2. Hard palate non-otogenic mucous retention cyst.
[2023-03-29 11:56] LABS: Glucose,Whole Blood 112 mg/dL (70-110)
[2023-03-29 14:53] VITALS: BP 143/84; PULSE 80; TEMP 97.9
--- NOTE | 2023-03-29 16:12 | DS ---
DISCHARGE SUMMARY CHIEF COMPLAINT: Syncopal episode. HISTORY OF PRESENT ILLNESS: Details of this man's history can be found in the initial workup. His physical exam on admission was normal. LABORATORY STUDIES: While he is in the hospital, he had laboratory studies, details of which can be found in the laboratory section of his record. COURSE IN HOSPITAL: After admission, he was placed on bedrest and started on telemetry with frequent monitoring of his vital signs. He had no difficulty in the hospital clinically or symptomatically. Blood sugars were brought under good control. He was to be released when his EEG came back abnormal demonstrating epileptiform activity in the left temporal lobe. An MRI was ordered. This was normal. It was felt he could be discharged. He will go home on Keppra 750 mg twice a day along with his usual medications, he will be followed up in several days in the office. 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 FINAL DIAGNOSES: 1. Syncopal episodes. 2. Seizure disorder. 3. Uncontrolled type 1 insulin-dependent diabetes mellitus. OPERATIONS: None. CONSULTATIONS: None. He is improved. MMODL / IJN: [id number] /
--- NOTE | 2023-03-31 07:51 | PN ---
PROGRESS NOTE DATE OF SERVICE: 03/06/2023 CHIEF COMPLAINT: Syncopal episode. HISTORY OF PRESENT ILLNESS: This gentleman's EEG has come back normal. He will be started on Keppra. An MRI will be ordered as well and discharge will be canceled. PHYSICAL EXAMINATION: CHEST: Clear. CARDIAC: Normal. ABDOMEN: Abdomen is soft, nontender. Blood sugars are improving. MMODL / IJN: [id number] /
== END 2023-03-29 16:04 | disposition home or self-care (01) ==
LOC: EC 08:41 → 6NMEDSUR 11:21
PROVIDERS: ADMIT Family Medicine; ATTEND Family Medicine
DX: R55 Syncope and collapse (principal); E10.65 Type 1 diabetes mellitus with hyperglycemia; I10 Essential (primary) hypertension; Z80.9 Family history of malignant neoplasm, unspecified; G40.909 Epilepsy, unspecified, not intractable, without status epilepticus; Z79.84 Long term (current) use of oral hypoglycemic drugs; Z79.4 Long term (current) use of insulin; Z79.899 Other long term (current) drug therapy; Z91.09 Other allergy status, other than to drugs and biological substances
CPT/HCPCS: 96361 ×6; 96360; 99285; 36415; 94760 ×3; 95816; 93005; 93306; 80053; 82803; 82009; 83605; 83735; 84484; 85025; 85610; 85730; 81001; 71046; 70496; 70450; 70498; 70553; G0378 ×5; J3475; Q9967; A9585

== ENCOUNTER → 2023-05-15 | Outpatient (CLI) | payer OTHER ==
--- NOTE | 2023-07-01 15:06 | P.CEMON ---
30 event monitor shows sinus rhythm and sinus tachycardia Sinus tachycardia up to 130 beats a minute No arrhythmias
--- NOTE | 2023-07-03 09:29 | EM ---
30 event monitor shows sinus rhythm and sinus tachycardia Sinus tachycardia up to 130 beats a minute No arrhythmias Additional CC's: Veto GRECO
== END | disposition home or self-care (01) ==
LOC: RADNMMAIN 10:46
PROVIDERS: ATTEND Family Medicine
DX: I10 Essential (primary) hypertension (principal); R00.0 Tachycardia, unspecified; R55 Syncope and collapse; R07.9 Chest pain, unspecified
CPT/HCPCS: 93270

== ENCOUNTER → 2023-11-07 | Outpatient (CLI) | payer OTHER ==
--- NOTE | 2023-11-07 17:32 | MR ---
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 TECHNIQUE: Multiplanar, multiecho imaging on a 3.0 Nerissa magnet is performed through the brain. Stud y is performed within 24 hours of arrival to the hospital. The craniovertebral junction is normal. The pituitary is normal. Optic chiasm appears normal. Diffusion-weighted imaging is performed. No abnormal hyperintensity is present to suggest an acute i ntracranial infarct or acute ischemic change. No suspicious signal abnormality within the brain. Ventricles and sulci are appropriate for the patient age. There is a large retention cyst or mucosal thickening crossing the midline in the septum currently me asures 2.3 x 2.6 cm within the right maxillary sinus. More posterior right septal deviation is noted IMPRESSION: 1. No acute intracranial changes. 2. Stable appearance of the cyst along the midline hard palate
--- NOTE | 2023-11-09 20:36 | CT ---
EXAMINATION TYPE: CT chest wo con DATE OF EXAM: 11/07/2023 COMPARISON: Radiographs 03/25/2023 HISTORY: 37-year-old male G40.019 pulmonary nodule, passing out possible seizure TECHNIQUE: Contiguous axial scanning of the chest without IV contrast. Coronal/sagittal reconstructio ns performed. CT DLP: 721mGycm. Automatic exposure control utilized for a dose reduction. FINDINGS: Heart is normal size with trace anterior basilar pericardial fluid. Aorta normal caliber with conventional vessel branching anatomy. No thoracic lymphadenopathy by CT size criteria. There is mild bilateral gynecomastia. Lungs show no consolidation or pleural effusion. Tiny 2 mm right middle lobe pulmonary nodule, axial image 32. Technique 3 mm medial left upper lobe pulmonary nodule, axial image 18. Prominent ingested material distending the stomach. Visualized upper abdomen otherwise shows no gross abnormality. Bones: Some scattered mild degenerative disc disease lower thoracic spine. IMPRESSION: 1. A couple tiny pulmonary nodules measuring 2 mm and 3 mm of questionable clinical significance. If the patient is high risk/smoker, a 12 month follow-up CT can be considered to reassess per Fleischner guidelines. 2. Otherwise, no acute pulmonary process.
== END | disposition home or self-care (01) ==
LOC: RADMRIMAIN 11:28
PROVIDERS: ATTEND Psychiatry & Neurology Neurology
DX: R91.8 Other nonspecific abnormal finding of lung field (principal); K09.8 Other cysts of oral region, not elsewhere classified; G40.109 Localization-related (focal) (partial) symptomatic epilepsy and epileptic syndromes with simple partial seizures, not intractable, without status epilepticus
CPT/HCPCS: 70551; 71250

== ENCOUNTER → 2024-02-23 | Outpatient (CLI) | payer OTHER ==
--- NOTE | 2024-02-23 20:01 | CT ---
EXAMINATION TYPE: CT facial bones wo con CT DLP: 628.7 mGycm, Automated exposure control for dose reduction was used. DATE OF EXAM: 02/23/2024 6:16 PM COMPARISON: 03/26/2023. 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 Coronal, axial and sagittal reformatted images were also provided in soft tissue and bone windows and submitted for interpretation. Additional 3-D reformatted images were obtained on a [employer] workstation. Contrast used:(none if empty) Oral contrast used: (none if empty) FINDINGS: There is a cyst extending from the superior alveolar ridge is near midline extending along the hard palate of the mouth measuring 22 x 29 x 27 mm and measuring 65 Hounsfield units.. There is r ightward deviation of the nasal septum with spurring displacing the right inferior turbinate. The par anasal sinuses are relatively clear. No evidence of fracture. There is no evidence of fracture, sublu xation, dislocation, or significant soft tissue swelling. The orbital contents are unremarkable.The t emporal-mandibular joints appear symmetric. IMPRESSION: 1. Palatal cyst 22 x 29 x 27 mm. Stable in size from 03/26/2023.e 2. Rightward deviated nasal septum with spurring displacing the right inferior turbinate.
== END | disposition home or self-care (01) ==
LOC: RADCTMAIN 17:35
PROVIDERS: ATTEND Dentist
DX: D49.2 Neoplasm of unspecified behavior of bone, soft tissue, and skin (principal); J34.2 Deviated nasal septum
CPT/HCPCS: 70486